=== PATIENT | male | born 1960 | race Caucasian/White ===

== ENCOUNTER 2017-10-01 11:53 | Inpatient (IN) | payer OTHER ==
[~2017-10-01] VITALS: Ht 180.3 cm; Wt 103.0 kg
[2017-10-01] MEDS ORDERED: SODIUM CHLORIDE 0.9% 1000ML 1,000 ML IV STA (12:19)
[2017-10-01 12:34] LABS: BASO % 0.5 %; BASO ABS # 0.03 K/uL (0-0.2); EOS % 3.5 %; HEMATOCRIT 44.4 % (42-52); HEMOGLOBIN 16.1 g/dL (14.0-18.0); IG# 0.01 K/uL (0.00-0.02); LYMPH % 30.9 %; LYMPH ABS # 1.75 K/uL (1.2-3.4); MEAN CELL VOLUME 79.4 fL (80-100); MEAN CORPUSCULAR HEMOGLOBIN 28.8 pg (25-34); MEAN CORPUSCULAR HGB CONC 36.3 g/dl (32-36); MEAN PLATELET VOLUME 9.6 fL (7.4-10.4); MONO % 4.2 %; MONO ABS # 0.24 K/uL (0.11-0.59); NEUT % 60.7 %; NEUT ABS # 3.44 K/uL (1.4-6.5); PLATELET COUNT 275 K/uL (130-400); RED CELL DISTRIBUTION WIDTH SD 37.2 fL (36.4-46.3); WHITE BLOOD COUNT 5.67 K/uL (4.8-10.8)
[2017-10-01] MEDS ORDERED: LORAZEPAM 2 MG/ML 1 ML VIAL IV STA (12:38)
[2017-10-01 12:47] LABS: ALBUMIN 3.9 gm/dl (3.4-5.0); ALKALINE PHOSPHATASE 85 U/L (45-117); ALT/SGPT 49 U/L (12-78); BLOOD UREA NITROGEN 16 mg/dl (7-18); CALCIUM 8.8 mg/dl (8.5-10.1); CARBON DIOXIDE 25 mmol/L (21-32); CREATININE 1.11 mg/dl (0.60-1.40); GLUCOSE 278 mg/dl (70-99); TOTAL PROTEIN 7.9 gm/dl (6.4-8.2)
[2017-10-01 12:54] LABS: POTASSIUM 4.1 mmol/L (3.5-5.1); SODIUM 135 mmol/L (136-145)
[2017-10-01 13:20] LABS: AST/SGOT 20 U/L (15-37)
--- NOTE | 2017-10-01 13:24 | DIAGNOSTIC IMAGING REPORT ---
CHEST AND ABDOMEN 2 VIEWS HISTORY: Generalized abdominal pain. Vomiting. COMPARISON: None. FINDINGS: The lungs are clear. The cardiomediastinal silhouette is within normal limits. There is no pneumoperitoneum or pneumatosis. The bowel gas pattern is unremarkable. No evidence for bowel obstruction. No renal or ureteral calculi. IMPRESSION: No acute cardiopulmonary process. No evidence for bowel obstruction. Electronically signed by: Primitivo Mae M.D. 10/01/2017 1:22 PM Dictated Date/Time: 10/01/2017 1:14 PM
[2017-10-01] MEDS ORDERED: LABETALOL HCL IV 5 MG/ML 20ML IV STA (13:34)
--- NOTE | 2017-10-01 13:40 | DIAGNOSTIC IMAGING REPORT ---
ABDOMINAL ULTRASOUND, RIGHT UPPER QUADRANT HISTORY: Generalized abdominal pain and vomiting after eating. COMPARISON: Chest and abdominal series 10/01/2017. FINDINGS: Pancreas: Obscured by overlying bowel gas. Liver: The liver is echogenic consistent with fatty change. Top normal in size measuring 18 cm in length. Gallbladder: No gallbladder wall thickening. No gallstones. CBD: 5 mm. Right kidney: No hydronephrosis. IMPRESSION: 1. Normal gallbladder. No gallstones. 2. Hepatic steatosis. 3. The pancreas was obscured by overlying bowel gas. Electronically signed by: Primitivo Mae M.D. 10/01/2017 1:39 PM Dictated Date/Time: 10/01/2017 1:38 PM
--- NOTE | 2017-10-01 13:52 | EMERGENCY ROOM VISIT NOTE ---
History Report prepared by Chadwick: Conor Bright Under the Supervision of: Dr. Elizabeth Hartley M.D. First contact with patient: 12:14 Chief Complaint: CARDIAC ASSESSMENT Stated Complaint: CARDIAC ASSESSMENT Nursing Triage Summary: Patient presents via ALS ambulance to room A03 He was evaluated at [facility] this morning and found to be hypertensive with a ? inferior infarct on EKG while in the office He never had any c/o chest pain however was given nitro SL x1 He had presented to [facility] for evaluation of abdominal pain, nausea, vomiting and diarrhea that he has had intermittently over the last several months States abdominal symptoms are currently resolved but most recent episode was appoximately 2 weeks ago History of Present Illness The patient is a 57 year old male who presents to the Emergency Room after referral from a primary physician at [facility] with concern over hypertension and new EKG findings. The patient notes that the physician he visited with stated that he needed to go to the emergency department to rule out a heart attack. The visit today was follow-up for some abdominal issues that he experienced 1.5 weeks ago. 1.5 weeks ago he had sharp pain to the periumbilical region of the abdomen as well as reflux, vomiting, and diarrhea. There was no blood in the emesis or stool. He does note that these episodes seem to be associated with eating high fat foods. Source of History: patient Onset: 1.5 weeks ago Position: abdomen Quality: sharp Timing: resolved Modifying Factors (Worsening): other (High fat foods) Associated Symptoms: + nausea, + vomiting, + diarrhea Review of Systems See HPI for pertinent positives & negatives. A total of 10 systems reviewed and were otherwise negative. Past Medical & Surgical Medical Problems: (1) No active medical problems Surgical Problems: (1) Hx of neck surgery No pertinent histories discussed. Family History None discussed. Social History Smoking Status: Never Smoker Marital Status: single Housing Status: lives with family Occupation Status: unemployed Current/Historical Medications Scheduled Aspirin (Aspirin EC Low Dose), 81 MG PO QAM Atorvastatin (Lipitor), 80 MG PO HS Clopidogrel Bisulfate (Clopidogrel), 75 MG PO QAM Lisinopril (Zestril), 10 MG PO QAM Metoprolol Tartrate (Lopressor), 25 MG PO BID Allergies Coded Allergies: No Known Allergies (Unverified , 10/01/17) Physical Exam Vital Signs Date Time Temp Pulse Resp B/P (MAP) Pulse Ox O2 Delivery O2 Flow Rate FiO2 10/01/17 13:38 93 20 186/106 96 Room Air 10/01/17 11:57 116 10/01/17 11:55 96 Room Air 10/01/17 11:55 37.3 110 24 166/113 96 Room Air 10/01/17 11:55 96 Room Air Physical Exam Vital signs reviewed. General: Well-appearing middle age male, in no significant distress. HEENT: No scleral icterus, PERRLA, neck supple. Atraumatic. Cardiovascular: Regular rate and rhythm, no extra sounds. Pulmonary: Clear to auscultation bilaterally, normal work of breathing. Abdomen: Soft, nontender, nondistended, positive bowel sounds. Musculoskeletal: Atraumatic, no peripheral edema. Neurologic: Patient awake alert and oriented x 3, full strength in all 4 extremities. Cranial nerves 2 through 12 grossly intact. Skin: Warm, dry, no rash Medical Decision & Procedures ER Provider Diagnostic Interpretation: Radiology results as stated below per my review and radiologist interpretation: CHEST AND ABDOMEN 2 VIEWS HISTORY: Generalized abdominal pain. Vomiting. COMPARISON: None. FINDINGS: The lungs are clear. The cardiomediastinal silhouette is within normal limits. There is no pneumoperitoneum or pneumatosis. The bowel gas pattern is unremarkable. No evidence for bowel obstruction. No renal or ureteral calculi. IMPRESSION: No acute cardiopulmonary process. No evidence for bowel obstruction. Electronically signed by: Primitivo Mae M.D. 10/01/2017 1:22 PM Dictated Date/Time: 10/01/2017 1:14 PM ABDOMINAL ULTRASOUND, RIGHT UPPER QUADRANT HISTORY: Generalized abdominal pain and vomiting after eating. COMPARISON: Chest and abdominal series 10/01/2017. FINDINGS: Pancreas: Obscured by overlying bowel gas. Liver: The liver is echogenic consistent with fatty change. Top normal in size measuring 18 cm in length. Gallbladder: No gallbladder wall thickening. No gallstones. CBD: 5 mm. Right kidney: No hydronephrosis. IMPRESSION: 1. Normal gallbladder. No gallstones. 2. Hepatic steatosis. 3. The pancreas was obscured by overlying bowel gas. Electronically signed by: Primitivo Mae M.D. 10/01/2017 1:39 PM Dictated Date/Time: 10/01/2017 1:38 PM Laboratory Results 10/01/17 12:00 Red Blood Count 5.59, Mean Corpuscular Volume 79.4, Mean Corpuscular Hemoglobin 28.8, Mean Corpuscular Hemoglobin Concent 36.3, Mean Platelet Volume 9.6, Neutrophils (%) (Auto) 60.7, Lymphocytes (%) (Auto) 30.9, Monocytes (%) (Auto) 4.2, Eosinophils (%) (Auto) 3.5, Basophils (%) (Auto) 0.5, Neutrophils # (Auto) 3.44, Lymphocytes # (Auto) 1.75, Monocytes # (Auto) 0.24, Eosinophils # (Auto) 0.20, Basophils # (Auto) 0.03 Test 10/01/17 12:00 White Blood Count 5.67 K/uL (4.8-10.8) Red Blood Count 5.59 M/uL (4.7-6.1) Hemoglobin 16.1 g/dL (14.0-18.0) Hematocrit 44.4 % (42-52) Mean Corpuscular Volume 79.4 fL (80-100) Mean Corpuscular Hemoglobin 28.8 pg (25-34) Mean Corpuscular Hemoglobin Concent 36.3 g/dl (32-36) Platelet Count 275 K/uL (130-400) Mean Platelet Volume 9.6 fL (7.4-10.4) Neutrophils (%) (Auto) 60.7 % Lymphocytes (%) (Auto) 30.9 % Monocytes (%) (Auto) 4.2 % Eosinophils (%) (Auto) 3.5 % Basophils (%) (Auto) 0.5 % Neutrophils # (Auto) 3.44 K/uL (1.4-6.5) Lymphocytes # (Auto) 1.75 K/uL (1.2-3.4) Monocytes # (Auto) 0.24 K/uL (0.11-0.59) Eosinophils # (Auto) 0.20 K/uL (0-0.5) Basophils # (Auto) 0.03 K/uL (0-0.2) RDW Standard Deviation 37.2 fL (36.4-46.3) RDW Coefficient of Variation 13.0 % (11.5-14.5) Immature Granulocyte % (Auto) 0.2 % Immature Granulocyte # (Auto) 0.01 K/uL (0.00-0.02) D-Dimer 290 ug/L FEU (0-500) Total Bilirubin 0.4 mg/dl (0.2-1) Direct Bilirubin < 0.1 mg/dl (0-0.2) Aspartate Amino Transf (AST/SGOT) 20 U/L (15-37) Alanine Aminotransferase (ALT/SGPT) 49 U/L (12-78) Alkaline Phosphatase 85 U/L (45-117) Total Protein 7.9 gm/dl (6.4-8.2) Albumin 3.9 gm/dl (3.4-5.0) Laboratory results per my review. Medications Administered Medications (Trade) Dose Ordered Sig/Liu Route Start Time Stop Time Status Last Admin Dose Admin Sodium Chloride 1,000 ml @ 200 mls/hr Q5H STAT IV 10/01/17 12:19 10/01/17 16:21 DC 10/01/17 12:27 200 MLS/HR Labetalol HCl (Normodyne IV) 10 mg NOW STAT IV 10/01/17 13:34 10/01/17 13:36 DC 10/01/17 13:40 10 MG ECG Per My Interpretation Indication: other (abnormal ekg earlier) Rate (beats per minute): 112 Rhythm: sinus tachycardia Findings: no acute ischemic change, no ectopy, other (QTC is 431) ED Course 1219: Past medical records reviewed. The patient was evaluated in room A3. A complete history and physical examination was performed. 1219: Ordered 1000 mL @ 200 mL/hr IV. 1238: Ordered Lorazepam 1 mg IV. 1334: Ordered Labetalol HCl 10 mg IV. 1351: I discussed the case with Dr. Mauro Smith [facility] Hospitalist. She will evaluate the patient for further treatment. Medical Decision Differential diagnosis: Etiologies such as appendicitis, diverticulitis, PUD, biliary pathology, UTI, pancreatitis, obstruction, mesenteric ischemia, aortic pathology, infections, inflammatory bowel disease, renal colic, as well as others were entertained. This pt was evaluated and appeared to be in no distress. IV access was obtained and lab work was drawn. Pt was placed on the site monitor. EKG reveals no evidence of STEMI. Lab work reveals a slight bump in trop, elevated glucose. Given post-prandial complaint, UA of GB was performed and is read as above. Abd XR series is negative for FA/SBO. Pt was hydrated with NSS, given IV labetolol for HTN. Pt will require inpt evaluation and management. He was made aware of the plan and agrees. Medication Reconcilliation Current Medication List: was personally reviewed by me Blood Pressure Screening Patient's blood pressure: Elevated blood pressure Referred to hospitalist. Consults Time Called: 1348 Consulting Physician: Dr. Mauro Velazquez Hospitalist Returned Call: 1351 I discussed the case with Dr. Mauro Velazquez Hospitalist. She will evaluate the patient for further treatment. Impression Primary Impression: Hypertensive urgency Additional Impression: Elevated troponin Scribe Attestation The scribe's documentation has been prepared under my direction and personally reviewed by me in its entirety. I confirm that the note above accurately reflects all work, treatment, procedures, and medical decision making performed by me. Departure Information Dispostion Being Evaluated By Hospitalist Prescriptions Aspirin (Aspirin EC Low Dose) 81 Mg Ectab 81 MG PO QAM, #30 TABS Prov: Lan, Elba ., D.O. 10/03/17 Metoprolol Tartrate (LOPRESSOR) 25 Mg Tab 25 MG PO BID, #60 TAB Prov: Lan, Elba ., D.O. 10/03/17 Lisinopril (Zestril) 10 Mg Tab 10 MG PO QAM, #30 TAB Prov: Lan, Elba ., D.O. 10/03/17 Atorvastatin (LIPITOR) 40 Mg Tab 80 MG PO HS, #30 TAB Prov: Lan, Elba ., D.O. 10/03/17 Clopidogrel Bisulfate (Clopidogrel) 75 Mg Tab 75 MG PO QAM, #30 TAB Prov: Lan, Elba ., D.O. 10/03/17 Patient Instructions My [facility] Problem Qualifiers
[2017-10-01 14:10] VITALS: O2SAT 96; BMI 32.9
[2017-10-01] MEDS ORDERED: GLUCOSE 10 TABS/TUBE PO PRN (15:15)
[2017-10-01] MEDS ORDERED: ONDANSETRON INJ 2 MG/ML 2 ML VIAL IV PRN (15:15)
[2017-10-01] MEDS ORDERED: DEXTROSE 50% 50 ML SYR IV PRN (15:15)
[2017-10-01] MEDS ORDERED: MAGNESIUM HYDROXIDE SUSP 30 ML UDC PO PRN (15:15)
[2017-10-01] MEDS ORDERED: POLYETHYLENE (MIRALAX) 17 GM PACK PO PRN (15:15)
[2017-10-01] MEDS ORDERED: LORAZEPAM 0.5 MG TAB PO PRN ×2 (15:15→21:00)
[2017-10-01] MEDS ORDERED: ALUMINUM/MAGNESIUM/SIMETH (MAALOX MAX) 30 ML UDC PO PRN (15:15)
[2017-10-01] MEDS ORDERED: GLUCAGON FOR INJ 1 MG VIAL SQ PRN (15:15)
[2017-10-01] MEDS ORDERED: NITROGLYCERIN 0.4 MG SL PER TAB CHARGE SL PRN (15:15)
[2017-10-01] MEDS ORDERED: GLUCOSE 40% GEL 15 GM TUBE PO PRN (15:15)
[2017-10-01] MEDS ORDERED: ACETAMINOPHEN 325 MG TAB PO PRN (15:15)
[2017-10-01] MEDS ORDERED: PHARMACY GLYCEMIC MGMT CONSULT PRN (15:22)
--- NOTE | 2017-10-01 15:37 | History and Physical ---
History & Physical Date & Time of Service: Oct 01, 2017 at 14:59 Chief Complaint: Cardiac Assessment Primary Care Physician: Emani,Dontae Vol.in Medicine History of Present Illness Source: patient, family, hospital records Pt is 57 y/o M presented to ER for HTN. Pt has not seen physician for years and therefore unsure of any underlying medical problems. He does report that he has checked his BP at pharmacy a couple of times in past and was 140's/90's. Today pt was seen at [facility] for initial evaluation and for hx of N/V/D. He was sent to ER for HTN and possible EKG changes. Pt denies any current CP or SOB. He states 2 weeks ago he ate a Whopper burger and after started with mid abdominal pain, nausea, vomiting and diarrhea which resolved after 2 days. He reports a similar occurrence 2 years ago after eating all you can eat appetizers and at that time symptoms lasted 4 days. Hx heartburn 5-7 times a week for past 4 years. 2 weeks ago took TUMS with moderate relief, otherwise no other medical treatment or evaluation. 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 Reports FRAKN that occurs once a month described as sharp sudden "explosion type" pain that lasts for approx 5 minutes and self resolves. It is not associated with vision changes, dizziness, paresthesias, lacrimation, N/V. Pt states increased nocturnal urination x 1 year. He reports approx 20 pound weight loss over past 6 months. He states has stopped drinking soda and has focused on controlled portions. Uses Ibuprofen 2 tabs once a day approx once a month. Drinks 1 cup coffee daily, 32 oz iced tea twice weekly. Denies fever/chills, diaphoresis, hematemesis, melena, hematochezia, dysuria, hematuria, urinary retention, dizziness, syncope, vision changes, neck pain, CP, SOB, orthopnea, PND, palpitations, cough, sore throat, choking, otalgia, rhinorrhea, paresthesias, weakness, extremity weakness, extremity edema, rashes. FH NV - age 75. FH HTN, HLD, DM Past Medical/Surgical History Medical Problems: (1) No active medical problems Status: Chronic Surgical Problems: (1) Hx of neck surgery Permanent Comment: 2003 - pt reports exploratory surgery for c-spine and reports normal results Status: Resolved Family History Diabetes mellitus FH: NV (myocardial infarction) FH: esophageal cancer FH: hyperlipidemia FH: kidney cancer FH: ovarian cancer Hypertension Social History Smoking Status: Never Smoker Smokeless Tobacco Use: No Alcohol Use: none Drug Use: none Housing status: lives with family Allergies Coded Allergies: No Known Allergies (Unverified , 10/01/17) Home Medications Scheduled Aspirin (Aspirin EC Low Dose), 81 MG PO QAM Atorvastatin (Lipitor), 80 MG PO HS Clopidogrel Bisulfate (Clopidogrel), 75 MG PO QAM Lisinopril (Zestril), 10 MG PO QAM Metoprolol Tartrate (Lopressor), 25 MG PO BID Review of Systems See HPI for pertinent positives & negatives. All other systems reviewed and were otherwise negative Physical Exam Vital Signs Date Time Temp Pulse Resp B/P (MAP) Pulse Ox O2 Delivery O2 Flow Rate FiO2 10/01/17 14:10 96 Room Air 10/01/17 13:38 93 20 186/106 96 Room Air 10/01/17 11:57 116 10/01/17 11:55 96 Room Air 10/01/17 11:55 37.3 110 24 166/113 96 Room Air 10/01/17 11:55 96 Room Air General Appearance: WD/WN, no apparent distress Head: normocephalic, atraumatic Eyes: normal inspection, PERRL, EOMI, sclerae normal ENT: hearing grossly normal, pharynx normal, + pertinent finding Neck: supple, no JVD, trachea midline Respiratory/Chest: lungs clear, normal breath sounds, no respiratory distress Cardiovascular: regular rate, rhythm, normal peripheral pulses Abdomen/GI: normal bowel sounds, non tender, soft Extremities/Musculoskelatal: no calf tenderness, normal capillary refill, no pedal edema, non-tender Neurologic/Psych: alert, normal mood/affect, oriented x 3 Skin: normal color, warm/dry Diagnostics Laboratory Results Results Past 24 Hours Test 10/01/17 12:00 10/01/17 14:18 Range/Units White Blood Count 5.67 4.8-10.8 K/uL Red Blood Count 5.59 4.7-6.1 M/uL Hemoglobin 16.1 14.0-18.0 g/dL Hematocrit 44.4 42-52 % Mean Corpuscular Volume 79.4 80-100 fL Mean Corpuscular Hemoglobin 28.8 25-34 pg Mean Corpuscular Hemoglobin Concent 36.3 32-36 g/dl Platelet Count 275 130-400 K/uL Mean Platelet Volume 9.6 7.4-10.4 fL Neutrophils (%) (Auto) 60.7 % Lymphocytes (%) (Auto) 30.9 % Monocytes (%) (Auto) 4.2 % Eosinophils (%) (Auto) 3.5 % Basophils (%) (Auto) 0.5 % Neutrophils # (Auto) 3.44 1.4-6.5 K/uL Lymphocytes # (Auto) 1.75 1.2-3.4 K/uL Monocytes # (Auto) 0.24 0.11-0.59 K/uL Eosinophils # (Auto) 0.20 0-0.5 K/uL Basophils # (Auto) 0.03 0-0.2 K/uL RDW Standard Deviation 37.2 36.4-46.3 fL RDW Coefficient of Variation 13.0 11.5-14.5 % Immature Granulocyte % (Auto) 0.2 % Immature Granulocyte # (Auto) 0.01 0.00-0.02 K/uL D-Dimer 290 0-500 ug/L FEU Sodium Level 135 136-145 mmol/L Potassium Level 4.1 3.5-5.1 mmol/L Chloride Level 103 98-107 mmol/L Carbon Dioxide Level 25 21-32 mmol/L Anion Gap 6.0 3-11 mmol/L Blood Urea Nitrogen 16 7-18 mg/dl Creatinine 1.11 0.60-1.40 mg/dl Est Creatinine Clear Calc Drug Dose 93.2 ml/min Estimated GFR () 86.2 Estimated GFR (Non- 74.4 BUN/Creatinine Ratio 14.4 10-20 Random Glucose 278 70-99 mg/dl Calcium Level 8.8 8.5-10.1 mg/dl Total Bilirubin 0.4 0.2-1 mg/dl Direct Bilirubin < 0.1 0-0.2 mg/dl Aspartate Amino Transf (AST/SGOT) 20 15-37 U/L Alanine Aminotransferase (ALT/SGPT) 49 12-78 U/L Alkaline Phosphatase 85 45-117 U/L Troponin I 0.076 0-0.045 ng/ml Total Protein 7.9 6.4-8.2 gm/dl Albumin 3.9 3.4-5.0 gm/dl Diagnostic Radiology CXR ABD XRAY: IMPRESSION: No acute cardiopulmonary process. No evidence for bowel obstruction. US GALLBLADDER: IMPRESSION: 1. Normal gallbladder. No gallstones. 2. Hepatic steatosis. 3. The pancreas was obscured by overlying bowel gas. EKG EKG: Sinus tachycardia, rate 112, no acute ST elevations noted Read by ed teacher: Sinus tachycardia Otherwise normal ECG No previous ECGs available Confirmed by LAURA LUKE ([id number]) on 10/01/2017 1:07:29 PM Impression Assessment and Plan Pt is 57 y/o M with unknown medical hx presented to ER with HTN and possible EKG changes from [facility]. Pt has not seen Dr in years and today first visit at [facility]. Pt denies any complaints currently. HTN URGENCY BP elevated at 166/113 initial in ER. 186/106 left arm, 180/117 right arm while in ER. No CP, SOB, dizziness, FRANK. Troponin: 0.[address] changes noted on EKG. Pt given labetalol 10mg IV in ER with continued HTN -labetolol IV prn HTN -Start lisinopril 5mg po daily -monitor ELEVATED TROPONIN R/O ACS Troponin: 0.[address] changes noted on EKG. No CP, SOB, dizziness, FRANK. Risk factors:HTN, probable underlying DM, obesity, FH CAD -Monitor Vitals -Repeat EKG in am -Will trend troponin -Echo -lipid panel -tox screen added -TSH added -ASA -Nitro prn CP and repeat EKG for CP HYPERGLYCEMIA Glucose: 278. Probable undiagnosed DM II. -HA1c added -NovoLog and Lantus per protocol HX INDIGESTION, N/V/D, ABDOMINAL PAIN reports indigestion symptoms 5-7 days a week for 4 years. Hx N/V/D and mid abdominal pain after eating fatty/greasy foods, last occurrence 2 weeks ago. In ER had gallbladder U/S: Normal gallbladder. No gallstones. Hepatic steatosis. The pancreas was obscured by overlying bowel gas. -Maalox prn indigestion -pt may need PPI start and/or out-patient GI consult DVT Prophylaxis -Heparin SQ Disposition admit tele Full Code Does not follow with for routine care Pt was seen with Dr Wade. See addendum patient seen and examined Care coordinated with Saqib HUMPHREYS In agreement with above H&P This is a 57-year-old male has not followed up with physician in the past Does not have medical insurance Was seen at [facility] for the first time visit With complaint abdominal discomfort episodes of nausea vomiting Patient was found to be markedly hypertensive EKG showed Q waves in the inferior and lateral leads Patient was sent to Medical Center via ambulance for chest pain Mentions for the past few weeks noticed to have significant dyspnea on exertion , poor exercise tolerance Lost approximately 30 pounds in the past 6 months Physical exam Is referred to the physical exam done by Tyra Cerrato PA-C Assessment and plan: Hypertensive urgency Patient was started with IV labetalol Continue antihypertensive meds past Low-dose lisinopril will be started Echo to assess hypertensive cardiomyopathy elevated troponin : with EKG changes , no prior EKG to compare serial cardiac markers ECHO cardiology consulted Hyperglycemia : family hx of DM pt reports of increased fatigue , polyuria ordered for Hb A1c insulin SSI , basal Lantus Pharmacy consulted for glycemic management Full code The documentation by Tyra Cerrato PA-C for further discussion of other medical issues Janessa Wade MD Advanced Directives Existing Living Will: No Existing Power of Foundry Patternmaker: No Resuscitation Status VTE Prophylaxis Will order VTE Prophylaxis: Yes
[2017-10-01 15:45] VITALS: BP 165/110; PULSE 98; TEMP 36.8; O2SAT 93
[2017-10-01] MEDS ORDERED: LISINOPRIL 5 MG TAB PO ONE ×2 (15:45→16:08)
[2017-10-01] MEDS ORDERED: METOPROLOL TARTRATE 25 MG TAB PO ONE (16:08)
[2017-10-01] MEDS: INSULIN ASPART 100 UNITS/ML 3 ML PEN SC SCH ×2 (16:43→21:03)
--- NOTE | 2017-10-01 16:51 | Cardiology Consultation ---
Cardiology Consultation Date of Consultation: Oct 01, 2017 Requesting Physician: Dr. Janessa Wade, reason for consultation: Elevated troponin, abnormal ECG Attending Ase Master Mechanic: Dr. Asher Ron History of Present Illness Patient is a 57 year old male presented to the emergency department via EMS from [facility]. Patient was referred to the emergency department due to elevated blood pressure and abnormal baseline ECG suggesting age-indeterminate inferior infarct. In the ER patient was treated with intravenous labetalol. He denies any chest pain or shortness of breath currently. Repeat ECG performed upon arrival demonstrate small inferior Q waves, no significant ST-T wave changes. Initial troponin is mildly elevated at 0.076. Patient reports epigastric discomfort, dyspepsia, and diarrhea which occurred approximately 10 days ago. Since then he has noted some intermittent heartburn primarily associated with eating. 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 Notes some mild dyspnea on exertion. Denies exertional chest discomfort , heaviness, or tightness. He was treated with sublingual nitroglycerin earlier , however, this had no effect symptomatically. Initial blood testing reveals diabetes with a random glucose of 278. Patient has not taken any medications as an adult. He does not typically follow with physicians. Denies any known medical problems prior to today's clinic visit. Offers no complaints at this time. Past Medical/Surgical History Problem List: Medical Problems: (1) No active medical problems Surgical Problems: (1) Hx of neck surgery Family History Diabetes mellitus FH: [place] (myocardial infarction) FH: esophageal cancer FH: hyperlipidemia FH: kidney cancer FH: ovarian cancer Hypertension Denies family history of premature coronary artery disease or sudden cardiac . Social History Smoking Status: Never Smoker Smokeless Tobacco Use: No Alcohol Use: none Drug Use: none Housing Status: lives with family Review Of Systems General: The patient denies weight change, night sweats, fever, chills. Head: + Headache. The patient denies prior head trauma. Cardiovascular: + Mild dyspnea on exertion. The patient denies chest pain or chest discomfort, palpitations, PND, orthopnea, edema, spontaneous shortness of breath, syncope and near syncope. Pulmonary: The patient denies cough, wheeze, pleurisy, hemoptysis, sputum, and excessive snoring. Gastrointestinal: + Dyspepsia, heartburn, diarrhea. The patient denies nausea, vomiting, constipation, bloating, hematemesis, hematochezia, and abdominal pain. Skin: The patient denies diaphoresis and rash. Musculoskeletal: The patient denies joint pain, joint swelling, myalgia, back pain, neck pain and prior injuries. Neurological: The patient denies prior stroke and seizures Allergies Coded Allergies: No Known Allergies (Unverified , 10/01/17) Medications Reported Home Medications Medications Dose Route/Sig Max Daily Dose Days Date Category No Active Prescriptions or Reported Medications Rx Physical Exam Vital Signs (Last 8hrs): Last 8 Hrs Date Time Temp Pulse Resp B/P (MAP) Pulse Ox O2 Delivery O2 Flow Rate FiO2 10/01/17 15:45 93 Room Air 10/01/17 15:45 36.8 98 18 165/110 (128) 93 Room Air 10/01/17 15:45 93 Room Air 10/01/17 15:30 94 20 144/98 94 Room Air 10/01/17 14:59 90 20 180/117 95 10/01/17 14:10 96 Room Air 10/01/17 13:38 93 20 186/106 96 Room Air 10/01/17 11:57 116 10/01/17 11:55 96 Room Air 10/01/17 11:55 37.3 110 24 166/113 96 Room Air 10/01/17 11:55 96 Room Air General Appearance: Alert and Oriented x3. NAD. Overweight. Head: Normocephalic Atraumatic. Eyes: PERRLA, EOMI, conjunctiva and sclera clear Neck: Supple. No carotid bruits noted. No JVD. No HJD. Respiratory: Breath sounds clear to auscultation bilaterally. No w/r/r. Cardiovascular: Reg rate and rhythm. S1 and S2 noted. No murmurs, rubs, gallops. PMI non displace. Abdomen: Normal bowel sounds, soft nontender. no abdominal bruits. Extremities: No edema, no clubbing or cyanosis. distal pulses 2/4 bilaterally. Neuro: No focal deficits. Psychiatric: Normal affect. Data Last 24 Hours Test 10/01/17 12:00 10/01/17 14:18 10/01/17 16:10 10/01/17 16:14 White Blood Count 5.67 K/uL Red Blood Count 5.59 M/uL Hemoglobin 16.1 g/dL Hematocrit 44.4 % Mean Corpuscular Volume 79.4 fL Mean Corpuscular Hemoglobin 28.8 pg Mean Corpuscular Hemoglobin Concent 36.3 g/dl Platelet Count 275 K/uL Mean Platelet Volume 9.6 fL Neutrophils (%) (Auto) 60.7 % Lymphocytes (%) (Auto) 30.9 % Monocytes (%) (Auto) 4.2 % Eosinophils (%) (Auto) 3.5 % Basophils (%) (Auto) 0.5 % Neutrophils # (Auto) 3.44 K/uL Lymphocytes # (Auto) 1.75 K/uL Monocytes # (Auto) 0.24 K/uL Eosinophils # (Auto) 0.20 K/uL Basophils # (Auto) 0.03 K/uL RDW Standard Deviation 37.2 fL RDW Coefficient of Variation 13.0 % Immature Granulocyte % (Auto) 0.2 % Immature Granulocyte # (Auto) 0.01 K/uL D-Dimer 290 ug/L FEU Sodium Level 135 mmol/L Potassium Level 4.1 mmol/L Chloride Level 103 mmol/L Carbon Dioxide Level 25 mmol/L Anion Gap 6.0 mmol/L Blood Urea Nitrogen 16 mg/dl Creatinine 1.11 mg/dl Est Creatinine Clear Calc Drug Dose 93.2 ml/min Estimated GFR () 86.2 Estimated GFR (Non- 74.4 BUN/Creatinine Ratio 14.4 Random Glucose 278 mg/dl Calcium Level 8.8 mg/dl Total Bilirubin 0.4 mg/dl Direct Bilirubin < 0.1 mg/dl Aspartate Amino Transf (AST/SGOT) 20 U/L Alanine Aminotransferase (ALT/SGPT) 49 U/L Alkaline Phosphatase 85 U/L Troponin I 0.076 ng/ml Total Protein 7.9 gm/dl Albumin 3.9 gm/dl Hepatitis C Antibody Screen NEG Bedside Glucose 200 mg/dl Prothrombin Time 10.6 SECONDS Prothromb Time International Ratio 1.0 Imaging: Chest x-ray: No CHF. EKG: Sinus rhythm, small inferior Q waves. Telemetry reviewed: Sinus rhythm 2D echocardiogram: Preserved LV systolic function, ejection fraction 55-60%. Small inferior posterior wall motion abnormality with hypokinesis of the segments. No significant valvular disease. No pericardial effusion. Assessment & Plan Final impression: 1. 57-year-old male patient presents for evaluation of elevated blood pressure and abnormal resting ECG. Initial troponin mildly elevated at 0.076. Blood pressure remains elevated. Baseline lab testing also suggests underlying diabetes mellitus was previously undiagnosed. Resting 2D transthoracic echo with a small wall motion abnormality suggesting underlying ischemic heart disease. Patient without signs/symptoms of angina currently, however, reports atypical symptoms over the past few weeks including dyspepsia and mild dyspnea on exertion. 2. HTN -newly diagnosed / uncontrolled 3. DM-2 4. Overweight Plan/Recommendations: I had a long discussion with the patient regarding new diagnoses listed above as well as abnormal baseline lab studies and echocardiogram. Troponins will be trended 3 sets. Recommend medical therapy including: Metoprolol 25 mg twice daily, lisinopril 5 mg daily, aspirin 81 mg daily, and atorvastatin 40 mg daily. Repeat fasting lipid panel ordered for the a.m. Continue telemetry monitoring during hospitalization. Further ischemic evaluation with stress testing versus coronary angiography is warranted pending clinical course and review of repeat lab testing. All questions answered to the satisfaction of both the patient and his daughter. I will continue to follow closely during hospitalization.
--- NOTE | 2017-10-01 16:57 | ECHOCARDIOGRAM REPORT ---
*NOTICE TO RECEIVING CONSTITUTION PARTY AGENCY This information is strictly Confidential and protected under [place] law. [place] law prohibits you from making any further disclosure of this information unless further disclosure is expressly permitted by the written consent of the person to whom it pertains or is authorized by law. A general authorization for the release of medical or other information is not sufficient for this purpose. Hospital accepts no responsibility if the information is made available to any other person, INCLUDING THE PATIENT. Interpretation Summary * Name: ADELA EVANS Study Date: 10/01/2017 02:55 PM BP: 144/98 mmHg * Patient Location: [facility] [place] HR: 91 * : 1960 (M/d/yyyy) Gender: Male Height: 71 in * Age: 57 yrs Ethnicity: CA Weight: 236 lb * Ordering Physician: Janessa Wade * Referring Physician: Self, Referred * Performed By: Shanna Moran RCS * * Reason For Study: HTN URGENCY * BSA: 2.3 m2 * The study was technically adequate. * There is no comparison study available. * -- Conclusions -- * Ejection Fraction = 55-60%. * Mild hypokinesis of the basal and mid inferior wall and basal posterior wall. * Otherwise, normal wall motion. * There is mild concentric left ventricular hypertrophy. * Grade I diastolic dysfunction, (abnormal relaxation pattern). * No significant valvular pathology. Procedure Details * A complete two-dimensional transthoracic echocardiogram was performed (2D, M-mode, Doppler and color flow Doppler). Left Ventricle * The left ventricle is normal in size. * There is no thrombus. * There is mild concentric left ventricular hypertrophy. * Left ventricular systolic function is normal. * Ejection Fraction = 55-60%. * Mild hypokinesis of the basal and mid inferior wall and basal posterior wall. Otherwise, normal wall motion. Right Ventricle * The right ventricle is normal size. * The right ventricular systolic function is normal as assessed by tricuspid annular plane systolic excursion (TAPSE) (normal >1.5 cm). Atria * The left atrial size is normal. * Right atrial size is normal. * There is no evidence of atrial septal defect, but resolution does not allow assessment for a patent foramen ovale. Mitral Valve * The mitral valve is normal. * There is no mitral valve stenosis. * Significant mitral regurgitation is absent. Tricuspid Valve * The tricuspid valve is normal. * There is no tricuspid stenosis. * Significant tricuspid regurgitation is absent. Aortic Valve * The aortic valve is trileaflet. * Aortic stenosis is absent. * There is no significant aortic regurgitation. Pulmonic Valve * The pulmonary valve is not well seen, but the Doppler examination is normal without significant regurgitation or stenosis. Great Vessels * The aortic root and proximal ascending aorta are normal sized. Pericardium/Pleural * There is no pericardial effusion. Great Vessels * Normal inferior vena cava diameter and respiratory variation suggests normal central venous pressure. Left Ventricular Diastolic Function * Grade I diastolic dysfunction, (abnormal relaxation pattern). MMode 2D Measurements and Calculations IVSd 1.5 cm IVSs 1.9 cm LVIDd 3.5 cm LVIDs 2.4 cm LVPWd 1.2 cm LVPWs 1.4 cm IVS/LVPW 1.2 FS 30.5 % EDV(Teich) 49.8 ml ESV(Teich) 20.4 ml EF(Teich) 59.1 % EDV(cubed) 41.8 ml ESV(cubed) 14.0 ml EF(cubed) 66.5 % % IVS thick 22.3 % % LVPW thick 11.2 % LV mass(C)d 170.0 grams LV mass(C)dI 75.1 grams/m\S\2 LV mass(C)s 141.9 grams LV mass(C)sI 62.7 grams/m\S\2 SV(Teich) 29.4 ml SI(Teich) 13.0 ml/m\S\2 SV(cubed) 27.8 ml SI(cubed) 12.3 ml/m\S\2 Ao root diam 2.8 cm Ao root area 6.2 cm\S\2 ACS 1.9 cm LA dimension 3.9 cm LA/Ao 1.4 LVOT diam 1.8 cm LVOT area 2.6 cm\S\2 LVAd ap4 39.1 cm\S\2 LVLd ap4 9.0 cm EDV(MOD-sp4) 134.1 ml EDV(sp4-el) 144.9 ml LVAs ap4 26.1 cm\S\2 LVLs ap4 7.8 cm ESV(MOD-sp4) 72.5 ml ESV(sp4-el) 73.7 ml EF(MOD-sp4) 45.9 % EF(sp4-el) 49.1 % LVAd ap2 41.4 cm\S\2 LVLd ap2 9.4 cm EDV(MOD-sp2) 143.8 ml EDV(sp2-el) 155.3 ml LVAs ap2 25.4 cm\S\2 LVLs ap2 8.0 cm ESV(MOD-sp2) 66.6 ml ESV(sp2-el) 68.5 ml EF(MOD-sp2) 53.7 % EF(sp2-el) 55.9 % LVLd %diff 4.3 % EDV(MOD-bp) 143.4 ml LVLs %diff 2.3 % ESV(MOD-bp) 70.7 ml EF(MOD-bp) 50.7 % SV(MOD-sp4) 61.6 ml SI(MOD-sp4) 27.2 ml/m\S\2 SV(MOD-sp2) 77.2 ml SI(MOD-sp2) 34.1 ml/m\S\2 SV(MOD-bp) 72.7 ml SI(MOD-bp) 32.1 ml/m\S\2 SV(sp4-el) 71.2 ml SI(sp4-el) 31.5 ml/m\S\2 SV(sp2-el) 86.8 ml SI(sp2-el) 38.4 ml/m\S\2 Doppler Measurements and Calculations MV E max barrett 49.6 cm/sec MV A max barrett 78.2 cm/sec MV E/A 0.63 MV P1/2t max barrett 62.1 cm/sec MV P1/2t 61.4 msec MVA(P1/2t) 3.6 cm\S\2 MV dec slope 296.5 cm/sec\S\2 MV dec time 0.17 sec Ao V2 max 120.8 cm/sec Ao max PG 5.8 mmHg Ao max PG (full) 2.2 mmHg ZARINA(V,A) 2.1 cm\S\2 ZARINA(V,D) 2.1 cm\S\2 LV V1 max PG 3.6 mmHg LV V1 max 94.9 cm/sec PA V2 max 92.3 cm/sec PA max PG 3.4 mmHg
[2017-10-01 20:46] VITALS: BP 155/100; PULSE 87; TEMP 36.7; O2SAT 95
[2017-10-01] MEDS ORDERED: INSULIN GLARGINE SOLOSTAR 100 UNITS/ML 3 ML PEN SC ONE (21:00)
[2017-10-01] MEDS: METOPROLOL TARTRATE 25 MG TAB PO SCH (21:02)
[2017-10-01] MEDS: ATORVASTATIN 40 MG TAB PO SCH (21:02)
[2017-10-01] MEDS: HEPARIN SOD 5000 UNIT/0.5 ML CARP SQ SCH (21:04)
[2017-10-01 23:35] VITALS: BP 138/85; PULSE 82; TEMP 37.1; O2SAT 96
[2017-10-02] VITALS (16 sets, daily range): BP systolic 137–168; BP diastolic 88–127; PULSE 73–98; TEMP 36.4–37; O2SAT 93–100; Ht 180.3 cm; Wt 103.0 kg
[2017-10-02] MEDS: INSULIN ASPART 100 UNITS/ML 3 ML PEN SC SCH ×4 (07:57→20:42)
[2017-10-02] MEDS: HEPARIN SOD 5000 UNIT/0.5 ML CARP SQ SCH ×2 (07:57→20:42)
[2017-10-02] MEDS: METOPROLOL TARTRATE 25 MG TAB PO SCH ×2 (07:58→20:35)
[2017-10-02 08:00] LABS: CALCIUM 8.8 mg/dl (8.5-10.1); CREATININE 1.07 mg/dl (0.60-1.40)
[2017-10-02 08:18] LABS: HEMOGLOBIN A1C 12.7 % (4.5-5.6)
[2017-10-02] MEDS ORDERED: LISINOPRIL 5 MG TAB PO ONE (08:30)
[2017-10-02] MEDS ORDERED: LISINOPRIL 5 MG TAB PO SCH ×2 (09:00)
[2017-10-02] MEDS: ASPIRIN 81 MG ECTAB PO SCH (09:31)
--- NOTE | 2017-10-02 10:02 | Cardiology Follow-Up ---
Subjective General Date of Service: Oct 02, 2017. Pt evaluation today including: conversation w/ patient, conversation w/ family , physical exam, chart review, lab review, review of studies, review of inpatient medication list History of Present Illness The patient is a 57 year old male seen in follow-up. Denies chest pain or shortness of breath overnight. Heart rate and blood pressure improved. Mild troponin elevation is flat. No dysrhythmias on telemetry. Allergies Coded Allergies: No Known Allergies (Unverified , 10/01/17) Social History Smoking Status: Never Smoker Hx Alcohol Use - Type And Amou: No Hx Substance Use - Type And Am: No Problem List Medical Problems: (1) Elevated troponin Status: Acute Review of Systems Respiratory: No cough, No sputum, No wheezing, No shortness of breath, No dyspnea on exertion, No dyspnea at rest, No hemoptysis Cardiac: No chest pain, No orthopnea, No PND, No edema, No palpitations Physical Exam Vital Signs Last Vital Signs Documentation Date Time Temp Pulse Resp B/P (MAP) Pulse Ox O2 Delivery O2 Flow Rate FiO2 10/02/17 08:00 Room Air 10/02/17 07:14 36.5 81 20 164/103 (123) 95 166/107 (126) Physical Exam Constitutional: General Apperance: overweight Level of Distress: NAD Ambulation: ambulating normally Head: normocephalic, atraumatic Lungs: Respiratory effort: no dyspnea Auscultation: breath sounds normal, no wheezing, no rales/crackles, no rhonchi Cardiovascular: Heart Auscultation: RRR, normal S1, normal S2, no murmurs, no rubs, no gallops Peripheral Pulses: Radial Pulse: normal on the right Femoral Pulse: normal on the right Musculoskeletal: normal strength (5/5 throughout) Extremities: no cyanosis, no edema, no clubbing, no ulcers Neurologic: Gait & Station: pertinent finding (No focal motor deficit) Cranial Nerves: grossly intact Assessment and Plan Assessment and Plan Final impression: 1. 57-year-old male patient presents for evaluation of elevated blood pressure and abnormal resting ECG. Mildly elevated troponins are flat with echocardiographic evidence of posterior inferior infarction and preserved LV systolic function. Myocardial infarction appears to be "silent" in the setting of uncontrolled diabetes. Atypical symptoms of dyspnea on exertion and dyspepsia noted. 2. HTN -newly diagnosed / uncontrolled 3. DM-2 4. Dyslipidemia Plan/Recommendations: I had a long discussion with the patient regarding results of testing suggesting underlying ischemic heart disease with recent inferior posterior infarction. Atypical symptoms noted as above, however, no classic anginal symptoms to correlate with any recent infarction. Use of patient's symptoms to model making supervisor anginal risk somewhat difficult given evidence of uncontrolled diabetes and possible neuropathy. He is high risk for underlying ischemic heart disease based on these results and risk factors. Discussed invasive versus noninvasive approach to treatment at this time. The risk of catheterization were reviewed in detail including bleeding, stroke risk, myocardial infarction, , dysrhythmia, or hemorrhage. After long discussion with the patient he is agreeable to left heart catheterization with coronary angiography. Further recommendations pending results of that study. Laboratory Results Last 24 Hours Test 10/01/17 12:00 10/01/17 14:18 10/01/17 16:10 10/01/17 16:14 White Blood Count 5.67 K/uL Red Blood Count 5.59 M/uL Hemoglobin 16.1 g/dL Hematocrit 44.4 % Mean Corpuscular Volume 79.4 fL Mean Corpuscular Hemoglobin 28.8 pg Mean Corpuscular Hemoglobin Concent 36.3 g/dl Platelet Count 275 K/uL Mean Platelet Volume 9.6 fL Neutrophils (%) (Auto) 60.7 % Lymphocytes (%) (Auto) 30.9 % Monocytes (%) (Auto) 4.2 % Eosinophils (%) (Auto) 3.5 % Basophils (%) (Auto) 0.5 % Neutrophils # (Auto) 3.44 K/uL Lymphocytes # (Auto) 1.75 K/uL Monocytes # (Auto) 0.24 K/uL Eosinophils # (Auto) 0.20 K/uL Basophils # (Auto) 0.03 K/uL RDW Standard Deviation 37.2 fL RDW Coefficient of Variation 13.0 % Immature Granulocyte % (Auto) 0.2 % Immature Granulocyte # (Auto) 0.01 K/uL D-Dimer 290 ug/L FEU Sodium Level 135 mmol/L Potassium Level 4.1 mmol/L Chloride Level 103 mmol/L Carbon Dioxide Level 25 mmol/L Anion Gap 6.0 mmol/L Blood Urea Nitrogen 16 mg/dl Creatinine 1.11 mg/dl Est Creatinine Clear Calc Drug Dose 93.2 ml/min Estimated GFR () 86.2 Estimated GFR (Non- 74.4 BUN/Creatinine Ratio 14.4 Random Glucose 278 mg/dl Calcium Level 8.8 mg/dl Total Bilirubin 0.4 mg/dl Direct Bilirubin < 0.1 mg/dl Aspartate Amino Transf (AST/SGOT) 20 U/L Alanine Aminotransferase (ALT/SGPT) 49 U/L Alkaline Phosphatase 85 U/L Troponin I 0.076 ng/ml 0.073 ng/ml Total Protein 7.9 gm/dl Albumin 3.9 gm/dl Hepatitis C Antibody Screen NEG Bedside Glucose 200 mg/dl Prothrombin Time 10.6 SECONDS Prothromb Time International Ratio 1.0 Total Creatine Kinase 80 U/L LDL Cholesterol Direct 139 mg/dl Thyroid Stimulating Hormone (TSH) 1.550 uIu/ml Test 10/01/17 20:40 10/01/17 20:45 10/02/17 00:10 10/02/17 02:10 Troponin I 0.073 ng/ml 0.069 ng/ml Bedside Glucose 192 mg/dl Urine Opiates Screen NEG Urine Methadone, Qualitative NEG Urine Barbiturates NEG Urine Phencyclidine (PCP) Level NEG Ur Amphetamine/Methamphetamine NEG MDMA (Ecstasy) Screen NEG Urine Benzodiazepines Screen NEG Urine Cocaine Metabolite NEG Urine Marijuana (THC) NEG Test 10/02/17 06:37 10/02/17 07:00 Bedside Glucose 194 mg/dl Sodium Level 136 mmol/L Potassium Level 4.0 mmol/L Chloride Level 103 mmol/L Carbon Dioxide Level 29 mmol/L Anion Gap 4.0 mmol/L Blood Urea Nitrogen 17 mg/dl Creatinine 1.07 mg/dl Est Creatinine Clear Calc Drug Dose 95.5 ml/min Estimated GFR () 90.1 Estimated GFR (Non- 77.7 BUN/Creatinine Ratio 16.1 Random Glucose 215 mg/dl Estimated Average Glucose 318 mg/dl Hemoglobin A1c 12.7 % Calcium Level 8.8 mg/dl Troponin I 0.053 ng/ml Triglycerides Level 737 mg/dl Cholesterol Level 254 mg/dl HDL Cholesterol 23 mg/dl LDL Cholesterol, Calculated mg/dl VLDL Cholesterol, Calculated mg/dl Cholesterol/HDL Ratio 11.0 Chemistry Specimen Hemolysis
[2017-10-02] MEDS: INSULIN GLARGINE SOLOSTAR 100 UNITS/ML 3 ML PEN SC SCH ×2 (10:31→20:44)
--- NOTE | 2017-10-02 10:40 | Pharmacy Progress Note ---
Pharmacy Glycemic Short Note 2 Date of Service Oct 02, 2017. OUTPATIENT ANTIDIABETIC REGIMEN: * No prior medications for DM * A1c 12.7% 10/02/17 ASSESSMENT: * Newly diagnosed type 2 diabetic with significantly elevated A1c (12.7%) admitted yesterday after presenting to ER with hypertensive urgency/emergency possible ACS * Patient has not followed up with a healthcare provider in many years and has just started seeing [facility] * Patient was given a single dose of Lantus 18 units last evening as well as Novolog SQ correction and carb ratio * Fasting BSGs elevated this AM (194-215) despite having some basal insulin on board - would recommend continuing Lantus using weight based, moderate stress dosing today * Patient will be NPO today for possible stress test / L heart cath * The current Novolog CF and CR are reasonable starting points. Will follow BSG pattern and adjust accordingly. PLAN FOR INPATIENT GLYCEMIC CONTROL: * Basal insulin * Lantus 18 units SQ BID - OK to give 18 units this AM despite NPO status * Bolus insulin * NovoLog per scale ACHS or Q6hrs while NPO * Goal Range: Low 110 mg/dL - High 140 mg/dL * Correction Factor: 20 mg/dL/unit * Nutritional / Prandial insulin per carb ratio of 1 unit per 7 grams CHO consumed PLAN FOR DISCHARGE: * Patient has significantly elevated A1c > 9 and will likely require insulin on discharge. May need to consider use of 70/30 insulin upon discharge if affordability of insulin an issue. Hopefully over the next day or two we will be able to determine what his daily insulin requirements are to recommend a discharge regimen. He will require prompt f/u with healthcare provider for medication adjustment within a week of discharge.
--- NOTE | 2017-10-02 12:21 | Pre Sedation Assessment ---
Pre Sedation Assessment General Date of Sedation: Oct 02, 2017. Vital Signs Past 12 Hours Date Time Temp Pulse Resp B/P (MAP) Pulse Ox O2 Delivery O2 Flow Rate FiO2 10/02/17 11:31 Room Air 10/02/17 11:06 36.7 84 20 168/98 (121) 94 Room Air 10/02/17 08:00 Room Air 10/02/17 07:14 36.5 81 20 164/103 (123) 95 Room Air 166/107 (126) 10/02/17 04:15 Room Air 10/02/17 03:38 36.5 73 18 137/89 (105) 96 Room Air Review Cardiovascular: regular rate, rhythm, no edema, no gallop Lungs: chest non-tender, lungs clear, normal breath sounds Pre-Sedation Airway Assessment Smoking Status: Never Smoker Hx of Sleep Apnea: No Short Thick Neck: No Thyro-mental Distance: > 3 Finger Breadths Oral Cavity: Dentures Mallampati Classification: Class II ASA Classification: Class III NPO Status Date of Last Intake of Fluids: Oct 01, 2017 Time of Last Intake of Fluids: 1899 Date of Last Intake of Solids: Oct 01, 2017 Time of Last Intake of Solids: 1899 Procedure Planning Contraindications for Sedation: None Current Medications Reviewed: Yes Notes The planned sedation has been discussed with the patient. Informed Consent was obtained. I have identified the patient, determined the appropriateness of sedation and have assessed the patient immediately prior to the procedure. All medicine(s) and interventions are by my order.
[2017-10-02] MEDS ORDERED: HEPARIN SOD (PORCINE) 1000 UNIT/ML 10 ML VIAL ONE ×2 (12:24→13:58)
[2017-10-02] MEDS ORDERED: NiCARDipine HCL INJ 2.5 MG/ML 10 ML AMP ONE (12:24)
[2017-10-02] MEDS ORDERED: NITROGLYCERIN/D5W 100MCG/ML 20ML SYR ONE (12:25)
[2017-10-02] MEDS ORDERED: FENTANYL CITRATE INJ 50 MCG/1 ML 2 ML VIAL ONE (12:26)
[2017-10-02] MEDS ORDERED: MIDAZOLAM HCL 1 MG/ML 2ML VIAL ONE (12:26)
[2017-10-02] MEDS ORDERED: LIDOCAINE HCL 1% 20 ML VIAL ONE (12:26)
[2017-10-02] MEDS ORDERED: ADENOSINE IV SOLN 3 MG/ML 20 ML VIAL ONE (13:13)
--- NOTE | 2017-10-02 13:22 | Post Sedation Assessment ---
Post Sedation Assessment General Date of Sedation Oct 02, 2017. Vital Signs: Vital Signs Past 12 Hours Date Time Temp Pulse Resp B/P (MAP) Pulse Ox O2 Delivery O2 Flow Rate FiO2 10/02/17 11:31 Room Air 10/02/17 11:06 36.7 84 20 168/98 (121) 94 Room Air 10/02/17 08:00 Room Air 10/02/17 07:14 36.5 81 20 164/103 (123) 95 Room Air 166/107 (126) 10/02/17 04:15 Room Air 10/02/17 03:38 36.5 73 18 137/89 (105) 96 Room Air Post Sedation Plan On clinical assessment, the patient appears to have tolerated the sedation without complications. Patient is recovering as anticipated. Patient will continue to be monitored by nursing and may be discharged when sedation discharge criteria are met per below protocol. Upon Completions of procedure and additional 15 minutes continue every 5 minute vital signs and the P.A.R. score; then discharge to a Phase I or Fast Track to Phase II per the following guidelines: * Discharge Patient to appropriate Phase II area if PAR is 8 or greater or return to pre- procedure baseline. The post - procedure orders will be as directed. * If PAR score is less than 8 or not return to pre-procedure baseline then patient will follow Phase I monitoring till PAR is reached for Phase II. The Phase I may be done in procedure room or may call to secure a Phase I area. * If naloxone or flumazenil are used for reversal, hold in Phase I for an additional 60 -120 minutes before discharge to Phase II. Please call the Sedation Physician to re-evaluate and complete post-note for discharge to Phase II area. Do NOT discharge from procedure sedation or Phase 1 until post- sedation evaluation note is complete by procedure /sedation MD Sedation Discharge Instructions to be given to the patient at discharge to home.
--- NOTE | 2017-10-02 13:26 | [facility] Post Operative Brief Note ---
Preliminary Procedure Note Procedure Date Oct 02, 2017. Pre-Procedure Diagnosis Non STEMI AUC Score 8 Post-Procedure Diagnosis Severe CAD Procedure(s) Performed Coronary Angiography, Left Heart Cath Supervisor Whipped Topping Dr. Ron Supervisor Grower(s) Valentina FOOD SERVICE AMBASSADOR Estimated Blood Loss 8cc Medication(s) Fentanyl, Heparin, Nicardipine, Nitroglycerin, Versed, Lidocaine 1% Preliminary Findings 80% proximal RPDA 70% mid to distal LAD 70% proximal Lcx Recommendations PCI without planned CABG (FFR LAD and Lcx) Specimens None Anesthesia Moderate sedation. Start 1231. End 1308. 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
--- NOTE | 2017-10-02 13:46 | Progress Note ---
Medicine Progress Note Date & Time of Visit: Oct 02, 2017 at 13:34. Subjective Patient seen earlier this morning, states he feels great other than not sleeping well last night. No overnight events noted. Is NPO for possible cath today. No other complaints at this time. Denies any CP, SOB, N/V/D. No events noted on tele. Objective Last 8 Hrs Date Time Temp Pulse Resp B/P (MAP) Pulse Ox O2 Delivery O2 Flow Rate FiO2 10/02/17 11:31 Room Air 10/02/17 11:06 36.7 84 20 168/98 (121) 94 Room Air 10/02/17 08:00 Room Air 10/02/17 07:14 36.5 81 20 164/103 (123) 95 Room Air 166/107 (126) Physical Exam: GENERAL: Patient is in no acute distress. HEENT: No acute trauma, normocephalic, mucous membranes moist, no nasal congestion, no scleral icterus. NECK: No stridor, trachea is midline. LUNGS: Clear to auscultation bilaterally, no wheeze, no rhonchi, breath sounds equal. HEART: Without murmurs gallops or rubs, regular rate and rhythm. ABDOMEN: Soft, nontender, bowel sounds positive EXTREMITIES: No cyanosis or edema, moving all extremities without pain or difficulty, no signs for acute trauma. NEUROLOGIC: Oriented x 3, no acute motor or sensory deficits, no focal weakness. SKIN: No rash, no jaundice, no diaphoresis. Laboratory Results: Last 24 Hours Test 10/01/17 14:18 10/01/17 16:10 10/01/17 16:14 10/01/17 20:40 Hepatitis C Antibody Screen NEG Bedside Glucose 200 mg/dl Prothrombin Time 10.6 SECONDS Prothromb Time International Ratio 1.0 Total Creatine Kinase 80 U/L Troponin I 0.073 ng/ml 0.073 ng/ml LDL Cholesterol Direct 139 mg/dl Thyroid Stimulating Hormone (TSH) 1.550 uIu/ml Test 10/01/17 20:45 10/02/17 00:10 10/02/17 02:10 10/02/17 06:37 Bedside Glucose 192 mg/dl 194 mg/dl Urine Opiates Screen NEG Urine Methadone, Qualitative NEG Urine Barbiturates NEG Urine Phencyclidine (PCP) Level NEG Ur Amphetamine/Methamphetamine NEG MDMA (Ecstasy) Screen NEG Urine Benzodiazepines Screen NEG Urine Cocaine Metabolite NEG Urine Marijuana (THC) NEG Troponin I 0.069 ng/ml Test 10/02/17 07:00 10/02/17 11:07 Sodium Level 136 mmol/L Potassium Level 4.0 mmol/L Chloride Level 103 mmol/L Carbon Dioxide Level 29 mmol/L Anion Gap 4.0 mmol/L Blood Urea Nitrogen 17 mg/dl Creatinine 1.07 mg/dl Est Creatinine Clear Calc Drug Dose 95.5 ml/min Estimated GFR () 90.1 Estimated GFR (Non- 77.7 BUN/Creatinine Ratio 16.1 Random Glucose 215 mg/dl Estimated Average Glucose 318 mg/dl Hemoglobin A1c 12.7 % Calcium Level 8.8 mg/dl Troponin I 0.053 ng/ml Triglycerides Level 737 mg/dl Cholesterol Level 254 mg/dl HDL Cholesterol 23 mg/dl LDL Cholesterol, Calculated mg/dl VLDL Cholesterol, Calculated mg/dl Cholesterol/HDL Ratio 11.0 Chemistry Specimen Hemolysis Bedside Glucose 204 mg/dl Assessment & Plan HTN URGENCY: -was given labetalol 10mg IV in ER with continued HTN -labetolol IV prn HTN was added -Started lisinopril PO and lopressor on admission; further titration as needed for BP control -monitor ELEVATED TROPONIN: -trending down since admission Troponin of 0.076 -EKG did not show acute ST or T wave changes -No typical symptoms of CP, SOB, dizziness, FRANK, diaphoresis -Risk factors:HTN, probable underlying DM, obesity, FHx of CAD -not events noted on tele monitor -Cardiology consulted, planning for cath today per their note -TTE report: * -- Conclusions -- * Ejection Fraction = 55-60%. * Mild hypokinesis of the basal and mid inferior wall and basal posterior wall. * Otherwise, normal wall motion. * There is mild concentric left ventricular hypertrophy. * Grade I diastolic dysfunction, (abnormal relaxation pattern). * No significant valvular pathology. -lipid panel: total 254, HDL 23 -tox screen added -TSH normal -continued on ASA, metoprolol -Nitro prn CP and repeat EKG for CP *Update*-patient underwent a cath, found to have severe CAD, had PCI with FRANCISCO J to the LAD, and right PDA HYPERGLYCEMIA: NEWLY DIAGNOSED DM -Glucose: 278 on admission -HbA1c: 12.1% -NovoLog and Lantus per protocol -Diabetes education consulted HYPERLIPIDEMIA: -started on statin last night, continued -total cholesterol 254 INDIGESTION, N/V/D, ABDOMINAL PAIN -reports frequent indigestion symptoms ~ 5-7 days a week for 4 years -also reports N/V/D and mid abdominal pain after eating fatty/greasy foods, last occurrence 2 weeks ago -RUQ/gallbladder US: Normal gallbladder. No gallstones. Hepatic steatosis. The pancreas was obscured by overlying bowel gas. -Maalox prn indigestion -pt may need PPI trial and will definitely need GI follow up as an outpatient for screening colonoscopy and further evaluation of above symptoms Current Inpatient Medications: Current Inpatient Medications Medications (Trade) Dose Ordered Sig/Liu Route Start Time Stop Time Status Last Admin Dose Admin Labetalol HCl (Normodyne IV) 10 mg Q6 PRN IV 10/01/17 15:15 10/31/17 15:14 Heparin Sodium (Porcine) (Heparin Sq 5000 Unit/0.5ml) 5,000 unit Q12 SQ 10/01/17 21:00 10/31/17 20:59 10/02/17 07:57 5,000 UNIT Acetaminophen (Tylenol Tab) 650 mg Q4H PRN PO 10/01/17 15:15 10/31/17 15:14 Al Hydrox/Mg Hydrox/Simethicone (Maalox Max Susp) 15 ml Q4H PRN PO 10/01/17 15:15 10/31/17 15:14 Magnesium Hydroxide (Milk Of Magnesia Susp) 30 ml Q12H PRN PO 10/01/17 15:15 10/31/17 15:14 Ondansetron HCl (Zofran Inj) 4 mg Q6H PRN IV 10/01/17 15:15 10/31/17 15:14 Nitroglycerin (Nitrostat Tab) 0.4 mg UD PRN SL 10/01/17 15:15 10/31/17 15:14 Aspirin (Ecotrin Tab) 81 mg QAM PO 10/02/17 09:00 11/01/17 08:59 10/02/17 09:31 81 MG Polyethylene (Miralax Powder Packet) 17 gm DAILY PRN PO 10/01/17 15:15 10/31/17 15:14 Insulin Aspart (novoLOG ASPART) SLIDING SCALE If C... ACHS SC 10/01/17 16:15 10/31/17 16:14 10/02/17 07:57 3 UNITS Glucose (Glucose 40% Gel) 15-30 GRAMS 15 GRAMS... UD PRN PO 10/01/17 15:15 10/31/17 15:14 Glucose (Glucose Chew Tab) 4-8 Tablets 4 Tabl... UD PRN PO 10/01/17 15:15 10/31/17 15:14 Dextrose (Dextrose 50% 50ML Syringe) 25-50ML OF 50% DW IV FOR... UD PRN IV 10/01/17 15:15 10/31/17 15:14 Glucagon (Glucagon Inj) 1 mg UD PRN SQ 10/01/17 15:15 10/31/17 15:14 Miscellaneous Information (Consult Glycemic Management Pharmacy) 1 ea UD PRN N/A 10/01/17 15:22 10/31/17 15:21 Metoprolol Tartrate (Lopressor Tab) 25 mg BID PO 10/01/17 21:00 10/31/17 20:59 10/02/17 07:58 25 MG Atorvastatin Calcium (Lipitor Tab) 40 mg HS PO 10/01/17 21:00 10/31/17 20:59 10/01/17 21:02 40 MG Lorazepam (Ativan Tab) 0.5 mg Q8H PRN PO 10/01/17 21:00 10/31/17 20:59 Lisinopril (Zestril Tab) 10 mg QAM PO 10/03/17 09:00 11/02/17 08:59 Insulin Glargine (Lantus Solostar Pen) 18 units BID SC 10/02/17 10:00 11/01/17 09:59 10/02/17 10:31 18 UNITS
[2017-10-02] MEDS ORDERED: TICAGRELOR 90 MG TAB PO ONE (14:33)
--- NOTE | 2017-10-02 14:39 | Post Sedation Assessment ---
Post Sedation Assessment General Date of Sedation Oct 02, 2017. Vital Signs: Vital Signs Past 12 Hours Date Time Temp Pulse Resp B/P (MAP) Pulse Ox O2 Delivery O2 Flow Rate FiO2 10/02/17 11:31 Room Air 10/02/17 11:06 36.7 84 20 168/98 (121) 94 Room Air 10/02/17 08:00 Room Air 10/02/17 07:14 36.5 81 20 164/103 (123) 95 Room Air 166/107 (126) 10/02/17 04:15 Room Air 10/02/17 03:38 36.5 73 18 137/89 (105) 96 Room Air Post Procedure Recovery Score Activity: (2) Moves 4 extremities * Respiration: (2) Deep breath/cough Circulation: (2) +/-20% PreAnes Value Consciousness: (2) Fully Awake Oxygen Saturation: (2) > 92% On Room Air Post Anesthesia Score: 10 Discharge Sedation Level of Care: Fast Track Phase II Post Sedation Plan On clinical assessment, the patient appears to have tolerated the sedation without complications. Patient is recovering as anticipated. Patient will continue to be monitored by nursing and may be discharged when sedation discharge criteria are met per below protocol. Upon Completions of procedure and additional 15 minutes continue every 5 minute vital signs and the P.A.R. score; then discharge to a Phase I or Fast Track to Phase II per the following guidelines: * Discharge Patient to appropriate Phase II area if PAR is 8 or greater or return to pre- procedure baseline. The post - procedure orders will be as directed. * If PAR score is less than 8 or not return to pre-procedure baseline then patient will follow Phase I monitoring till PAR is reached for Phase II. The Phase I may be done in procedure room or may call to secure a Phase I area. * If naloxone or flumazenil are used for reversal, hold in Phase I for an additional 60 -120 minutes before discharge to Phase II. Please call the Sedation Physician to re-evaluate and complete post-note for discharge to Phase II area. Do NOT discharge from procedure sedation or Phase 1 until post- sedation evaluation note is complete by procedure /sedation MD Sedation Discharge Instructions to be given to the patient at discharge to home.
--- NOTE | 2017-10-02 14:54 | Cardiac Catheterization ---
Procedure Note Procedure Date Oct 02, 2017. Pre-Procedure Diagnosis Non STEMI AUC Score 8 Post-Procedure Diagnosis Severe CAD, Successful PCI Procedure(s) Performed Drug Eluting Stent, Fractional Flow [employer] Turner Chong Clinical Esthetician(s) Valentina Estimated Blood Loss 15 Medication(s) Fentanyl, Heparin, Nicardipine, Nitroglycerin, Versed Summary of Findings Indication: NSTEMI, new LV regional wall motion abnormalities on echo Access: 6 FR right radial artery Catheters: Ikari 3.5 guide Findings: For full details of patient's coronary angiography please cath report dictated by Dr. Ron. Briefly, patient found to have multi vessel disease involving his mid to distal LAD, mid circumflex and proximal PDA (80 percent stenosis). Decision to FFR circumflex and LAD with plan for PCI of PDA. FFR wire placed into distal OM2. iFR mid circumflex 1.01 FFR mid circumflex 0.85 FFR wire removed from circumflex and placed into distal LAD FFR mid to distal LAD 0.8--decision to proceed with PCI. -- PCI of mid distal LAD and proximal PDA-- Antithrombotic therapy: Heparin, ticagrelor Procedure: Left main cannulated with Ikari 3.5 guide BMW wire passed across lesion into distal LAD Mid to distal LAD lesion predilated with 2.5 compliant balloon Dilated lesion stented with 3.5 x 23 Xience drug-eluting stent Stent post-dilated with 3.75 noncompliant balloon IC vasodilators administered for spasm Post procedure [place] 3 flow, stent well expanded with minimal residual stenosis and no apparent cardiac complications. Ikari guide than used to cannulate RCA BMW wire passed across the lesion into distal PDA Proximal PDA stenosis dilated with 2.5 balloon 2.75 x 15 Xience drug-eluting stent placed from ostium of PDA Stent post dilated with a stent balloon IC vasodilators administered for spasm Post procedure [place] 3 flow, stent well expanded with minimal residual stenosis and no apparent cardiac complications. Arterial Closure: TR band Summary: 1. Multivessel coronary artery disease -80 percent proximal right PDA -60-70 percent mid to distal LAD (FFR 0.8) -60 percent hazy mid circumflex (FFR 0.85) 2. Successful PCI of mid to distal LAD with single drug-eluting stent (3.5 x 23 Xience FRANCISCO J; post dilated with 3.75 NC) 3. Successful PCI of proximal right PDA with single drug-eluting stent (2.75 x 15 Xience FRANCISCO J) Recommendations: To PCU for continued monitoring Loaded with ticagrelor 180 milligrams in medical laboratory manager Continue dual-antiplatelet therapy for at least 1 year Continue statin, and ASCVD risk factor modification Consult cardiac Rehab Hemodynamics Rest Ao: 134/82/106 Final Ao: 123/82/101 LV: -- Recommendations PCI without planned CABG Specimens None Radiation Exposure (mGy) 5989 Contrast (mls) 295 Opti Fluids (cc crystalloids) 135 Drains None Anesthesia Moderate Procedural Complication(s) None Disposition PCU ACC Data Cardiac Status Clinical evaluation leading to the procedure CAD Presntation: Non STEMI Anginal Classification: CCS IV Heart Failure: No, NYHA Class: CCS I Cardiogenic Shock w/in 24Hrs: No Cardiac Arrest w/in 24Hrs: No Imaging studies past 6 months: Yes Stress studies past 6 months: No Diagnostic Physician's Name: Ab Ron, Status: Elective Closure Device Percutaneous Entry Location: Radial Closure Device: Mynx Recommendations: PCI without planned CABG PCI Indication: PCI for high risk Non-STEMI Lesion Segment Name: proximal R-PDA Culprit Artery: Yes Stenosis Prior to Rx (%): 80 Chronic Total Occlusion: No IVUS: No FFR: No Pre-Procedure [place] Flow: 3 Previously Treated Lesion: No Lesion Complexity: Non-High/Non-C Lesion Length (mm): 12 Thrombus Present: No Bifurcation Lesion: No Guidewire Across Lesion: Yes Guidewire: Stenosis Post-Procedure (%): 0 Post-Procedure [place] Flow: 3 Device(s) Deployed: Yes Lesion #2 Segment Name: mid to distal LAD Culprit Artery: No Stenosis Prior to Rx (%): 60-70 Chronic Total Occlusion: No IVUS: No FFR: Yes Ratio: greater than 0.75% Pre-Procedure [place] Flow: 3 Previously Treated Lesion: No Lesion Complexity: Non-High/Non-C Lesion Length (mm): 18 Thrombus Present: No Bifurcation Lesion: No Guidewire Across Lesion: Yes Guidewire: Stenosis Post-Procedure (%): 0 Post-Procedure [place] Flow: 3 Device(s) Deployed: Yes Intraprocedure Events Significant Dissection: No Perforation: No
[2017-10-02] MEDS: SODIUM CHLORIDE 0.9% 1000ML 1,000 ML IV SCH ×2 (15:00→22:20)
[2017-10-02] MEDS: ATORVASTATIN 40 MG TAB PO SCH (20:35)
[2017-10-02] MEDS: TICAGRELOR 90 MG TAB PO SCH (21:54)
[2017-10-03] VITALS (12 sets, daily range): BP systolic 129–185; BP diastolic 87–180; PULSE 75–82; TEMP 36.6–37.1; O2SAT 95–99
[2017-10-03 06:31] LABS: CALCIUM 8.8 mg/dl (8.5-10.1); CREATININE 0.96 mg/dl (0.60-1.40)
[2017-10-03] MEDS: TICAGRELOR 90 MG TAB PO SCH (07:57)
[2017-10-03] MEDS: METOPROLOL TARTRATE 25 MG TAB PO SCH (07:57)
[2017-10-03] MEDS: ASPIRIN 81 MG ECTAB PO SCH (07:57)
[2017-10-03] MEDS: LISINOPRIL 10 MG TAB PO SCH (07:58)
[2017-10-03] MEDS: INSULIN ASPART 100 UNITS/ML 3 ML PEN SC SCH ×4 (08:02→20:45)
[2017-10-03] MEDS: INSULIN GLARGINE SOLOSTAR 100 UNITS/ML 3 ML PEN SC SCH ×2 (08:04→20:46)
[2017-10-03] MEDS: HEPARIN SOD 5000 UNIT/0.5 ML CARP SQ SCH ×2 (08:07→20:50)
--- NOTE | 2017-10-03 10:00 | Cardiology Follow-Up ---
Subjective General Date of Service: Oct 03, 2017. Pt evaluation today including: conversation w/ patient, physical exam, chart review, lab review, review of studies, conversation w/ customer service sales consultant, review of inpatient medication list History of Present Illness The patient is a 57 year old male seen in follow-up. Feeling better today. Reports improved energy levels. Denies chest pain or shortness of breath. Mild right anterior wrist discomfort with mild ecchymosis however, without hematoma. Tolerating current medications. Offers no complaints. Allergies Coded Allergies: No Known Allergies (Unverified , 10/01/17) Social History Smoking Status: Never Smoker Hx Alcohol Use - Type And Amou: No Hx Substance Use - Type And Am: No Problem List Medical Problems: (1) Elevated troponin Status: Acute Review of Systems Respiratory: No cough, No sputum, No wheezing, No shortness of breath, No dyspnea on exertion, No dyspnea at rest, No hemoptysis Cardiac: No chest pain, No orthopnea, No PND, No edema, No claudication, No palpitations Physical Exam Vital Signs Last Vital Signs Documentation Date Time Temp Pulse Resp B/P (MAP) Pulse Ox O2 Delivery O2 Flow Rate FiO2 10/03/17 08:00 Room Air 10/03/17 07:01 36.6 76 18 152/99 (116) 97 10/02/17 17:00 4.0 Physical Exam Constitutional: General Apperance: overweight Level of Distress: NAD Ambulation: ambulating normally Head: normocephalic, atraumatic ENMT: normal ENT inspection Lungs: Respiratory effort: no dyspnea Auscultation: breath sounds normal, no wheezing, no rales/crackles, no rhonchi Cardiovascular: Heart Auscultation: RRR, normal S1, normal S2, no murmurs, no rubs, no gallops Peripheral Pulses: Radial Pulse: normal on the right Femoral Pulse: normal on the right Musculoskeletal: normal strength (5/5 throughout) Extremities: no cyanosis, no edema, no clubbing, no ulcers, pertinent finding ( Mild right anterior wrist ecchymosis.) Neurologic: Gait & Station: pertinent finding (No focal motor deficit) Cranial Nerves: grossly intact Assessment and Plan Assessment and Plan Final impression: 1. 57-year-old male presents with elevated troponin suggestive of recent NSTEMI with echocardiographic evidence of small posterior / inferior infarct. Cardiac catheterization revealed multivessel CAD with 70% LAD (significant by FFR), 80% proximal RPDA stenosis, and 70% left circumflex stenosis (not significant by FFR). He received a drug-eluting stent to the mid LAD as well as a drug-eluting stent to the RPDA 10/02/17. No complications. 2. HTN - improved with addition of lisinopril and beta-xochitl 3. DM-2 4. Dyslipidemia Plan/Recommendations: Patient will be transitioned from Brilinta to Plavix due to financial constraints. Brilinta discontinued. I have ordered a 300 mg dose of Plavix to be given at 2 PM today. He will then continue Plavix 75 mg daily. Atorvastatin will be titrated to 80 mg daily with plans for repeat fasting lipid panel and CMP in 6-12 weeks. Other cardiovascular medications including lisinopril, beta-xochitl, aspirin will be continued as previously ordered. Cardiac rehab recommended. Diabetes management as per internal medicine. Patient may be discharged from a cardiac perspective. Outpatient follow-up in 1 -2 weeks. Laboratory Results Last 24 Hours Test 10/02/17 11:07 10/02/17 13:54 10/02/17 14:16 10/02/17 15:22 Bedside Glucose 204 mg/dl Kaolin Activated Coagulation Time 213 SECONDS 257 SECONDS Troponin I 0.045 ng/ml Test 10/02/17 16:20 10/02/17 20:34 10/03/17 05:17 10/03/17 07:03 Bedside Glucose 164 mg/dl 180 mg/dl 165 mg/dl Sodium Level 136 mmol/L Potassium Level 4.0 mmol/L Chloride Level 106 mmol/L Carbon Dioxide Level 28 mmol/L Anion Gap 2.0 mmol/L Blood Urea Nitrogen 15 mg/dl Creatinine 0.96 mg/dl Est Creatinine Clear Calc Drug Dose 106.5 ml/min Estimated GFR () 102.7 Estimated GFR (Non- 88.6 BUN/Creatinine Ratio 16.1 Random Glucose 145 mg/dl Calcium Level 8.8 mg/dl
[2017-10-03] MEDS ORDERED: PLV75 PO (11:29)
[2017-10-03] MEDS ORDERED: ASPI-320 PO (11:29)
[2017-10-03] MEDS ORDERED: LSN10 PO (11:29)
[2017-10-03] MEDS ORDERED: LPT40 PO (11:29)
[2017-10-03] MEDS ORDERED: LPR25 PO (11:29)
--- NOTE | 2017-10-03 11:34 | Discharge Instructions ---
Discharge Instructions Date of Service Oct 03, 2017. Admission Reason for Admission: Hypertensive Urgency Discharge Discharge Diagnosis / Problem: CAD, HTN Urgency, Diabetes Discharge Goals Goal(s): Diagnostic testing, Therapeutic intervention Activity Recommendations Activity Limitations: as noted below Lifting Limitations: none, gradually increase as tolerated Exercise/Sports Limitations: rest today, gradually increase as tolerated . Instructions / Follow-Up Instructions / Follow-Up Please make sure you obtain and take all medications that are prescribed; especially the aspirin and plavix which should not be stopped due to your new stents Please follow up with your Physician at [facility] on October 08 at 9:30 AM ) they will provide a glucometer and supplies, as well as medications at that appointment Please follow up with Cardiology as already scheduled Please follow up Marcus Limon on October 21 at 10:45 AM to establish care with a new Primary care physician Please begin taking Metformin "Glucophage" at a dose of 500 mg (1 tablet) daily for 3 days, then increased to 1 tablet twice a day for 3 days, then increase to 2 tablets in the morning and 1 at night for 3 days, and then increase to the goal of 2 tablets in the AM and 2 tablets in the PM Current Hospital Diet Patient's current hospital diet: AHA Diet (Heart Healthy), Diabetes Type 2 Diet Discharge Diet Recommended Diet: AHA Diet (Heart Healthy), Diabetes Type 2 Diet Pending Studies Studies pending at discharge: no Laboratory Results Hemoglobin A1c Test 10/02/17 07:00 Range/Units Estimated Average Glucose 318 mg/dl Hemoglobin A1c 12.7 H 4.5-5.6 % Lipid Panel Test 10/02/17 07:00 Range/Units Triglycerides Level 737 H 0-150 mg/dl Cholesterol Level 254 H 0-200 mg/dl HDL Cholesterol 23 mg/dl Cholesterol/HDL Ratio 11.0 LDL Cholesterol, Calculated mg/dl Medical Emergencies . Who to Call and When: Medical Emergencies: If at any time you feel your situation is an emergency, please call 911 immediately. . Non-Emergent Contact Non-Emergency issues call your: Primary Care Provider, Stave Bolt Equalizer . . "Provider Documentation" section prepared by Elba Lan. .
--- NOTE | 2017-10-03 11:43 | Pharmacy Progress Note ---
Pharmacy Glycemic Short Note 2 Date of Service Oct 03, 2017. OUTPATIENT ANTIDIABETIC REGIMEN: * No prior medications for DM * A1c 12.7% 10/02/17 Test 10/02/17 16:20 10/02/17 20:34 10/03/17 05:17 10/03/17 07:03 Bedside Glucose 164 mg/dl (70-99) 180 mg/dl (70-99) 165 mg/dl (70-99) Random Glucose 145 mg/dl (70-99) ASSESSMENT: * Newly diagnosed type 2 diabetic with significantly elevated A1c (12.7%) admitted 10/01 after presenting to ER with hypertensive urgency/emergency possible ACS * Patient has not followed up with a healthcare provider in many years and has just started seeing [facility] * Blood sugars at goal PLAN FOR INPATIENT GLYCEMIC CONTROL: * Basal insulin * Lantus 18 units SQ BID * Bolus insulin * NovoLog per scale ACHS or Q6hrs while NPO * Goal Range: Low 110 mg/dL - High 140 mg/dL * Correction Factor: 20 mg/dL/unit * Nutritional / Prandial insulin per carb ratio of 1 unit per 7 grams CHO consumed PLAN FOR DISCHARGE: * Patient has significantly elevated A1c > 9 and will likely require insulin on discharge. May need to consider use of 70/30 insulin upon discharge if affordability of insulin an issue. He will require prompt f/u with healthcare provider for medication adjustment within a week of discharge. * Recommend * Metformin - start with 500mg po daily, titrate up by 500mg every 3 days to 1000mg PO BID with meals * Insulin - either Lantus 18 units SQ BID OR Novolin (Relion - [employer] brand) 70/30 - 16 units SQ BID with breakfast and dinner
[2017-10-03] MEDS: LABETALOL HCL IV 5 MG/ML 20ML IV PRN ×2 (12:20→23:33)
[2017-10-03] MEDS ORDERED: METOPROLOL TARTRATE 25 MG TAB PO STA (12:58)
[2017-10-03] MEDS ORDERED: CLOPIDOGREL BISULFATE 300 MG TAB PO ONE (14:00)
[2017-10-03] MEDS ORDERED: LISINOPRIL 10 MG TAB PO ONE (17:00)
--- NOTE | 2017-10-03 17:39 | Progress Note ---
Medicine Progress Note Date & Time of Visit: Oct 03, 2017 at 17:30. Subjective Patient doing well, is definitely worried about his BP and does appear a bit apprehensive about his BP being higher than it has been. No overnight events noted, states he slept well. Tolerating PO without difficulty. Denies any CP or SOB. States he feels great other than being worried about his BP. No other complaints at this time. Objective Last 8 Hrs Date Time Temp Pulse Resp B/P (MAP) Pulse Ox O2 Delivery O2 Flow Rate FiO2 10/03/17 16:37 78 158/105 (122) 10/03/17 15:15 36.9 79 22 179/180 (180) 95 10/03/17 12:45 81 153/97 (115) 10/03/17 12:20 82 185/111 (135) 10/03/17 12:00 Room Air 10/03/17 11:35 37.1 80 20 179/108 (131) 96 Room Air Physical Exam: GENERAL: Patient is in no acute distress. HEENT: No acute trauma, normocephalic, mucous membranes moist, no nasal congestion, no scleral icterus. NECK: No stridor, trachea is midline. LUNGS: Clear to auscultation bilaterally, no wheeze, no rhonchi, breath sounds equal. HEART: Without murmurs gallops or rubs, regular rate and rhythm. ABDOMEN: Soft, nontender, bowel sounds positive EXTREMITIES: No cyanosis or edema, moving all extremities without pain or difficulty, no signs for acute trauma. NEUROLOGIC: Oriented x 3, no acute motor or sensory deficits, no focal weakness. SKIN: No rash, no jaundice, no diaphoresis. Laboratory Results: Last 24 Hours Test 10/02/17 20:34 10/03/17 05:17 10/03/17 07:03 10/03/17 11:31 Bedside Glucose 180 mg/dl 165 mg/dl 169 mg/dl Sodium Level 136 mmol/L Potassium Level 4.0 mmol/L Chloride Level 106 mmol/L Carbon Dioxide Level 28 mmol/L Anion Gap 2.0 mmol/L Blood Urea Nitrogen 15 mg/dl Creatinine 0.96 mg/dl Est Creatinine Clear Calc Drug Dose 106.5 ml/min Estimated GFR () 102.7 Estimated GFR (Non- 88.6 BUN/Creatinine Ratio 16.1 Random Glucose 145 mg/dl Calcium Level 8.8 mg/dl Test 10/03/17 16:05 Bedside Glucose 141 mg/dl Assessment & Plan CAD/Recent NSTEMI: -had a slight troponin elevation on admission which appeared to trend down -patient underwent a cath, found to have severe CAD, had PCI with FRANCISCO J to the mid to distal LAD, and right PDA -was initially on ticagrelor but due to financial constraints this was changed to clopidogrel today by Cardio -continued on ASA, statin, metoprolol and lisinopril HTN URGENCY: -was given labetalol 10mg IV in ER with continued HTN -labetolol IV prn HTN was added, was given a dose today due to elevated BP again -Started lisinopril PO and lopressor on admission; further titration as needed for BP control; increased lisinopril and metoprolol -monitor ELEVATED TROPONIN: -trending down since admission Troponin of 0.076 -EKG did not show acute ST or T wave changes -No typical symptoms of CP, SOB, dizziness, FRANK, diaphoresis -Risk factors:HTN, probable underlying DM, obesity, FHx of CAD -not events noted on tele monitor -Cardiology consulted, appreciate recs, planning for follow up via [facility] in about 1-2 weeks -TTE report: * -- Conclusions -- * Ejection Fraction = 55-60%. * Mild hypokinesis of the basal and mid inferior wall and basal posterior wall. * Otherwise, normal wall motion. * There is mild concentric left ventricular hypertrophy. * Grade I diastolic dysfunction, (abnormal relaxation pattern). * No significant valvular pathology. -lipid panel: total 254, HDL 23 -tox screen neg -TSH normal -continued on ASA, metoprolol -Nitro prn CP and repeat EKG for CP HYPERGLYCEMIA: NEWLY DIAGNOSED DM -Glucose: 278 on admission -HbA1c: 12.1% -NovoLog and Lantus per protocol -Diabetes education consulted HYPERLIPIDEMIA: -started on statin last night, continued -total cholesterol 254 INDIGESTION, N/V/D, ABDOMINAL PAIN -reports frequent indigestion symptoms ~ 5-7 days a week for 4 years -also reports N/V/D and mid abdominal pain after eating fatty/greasy foods, last occurrence 2 weeks ago -RUQ/gallbladder US: Normal gallbladder. No gallstones. Hepatic steatosis. The pancreas was obscured by overlying bowel gas. -Maalox prn indigestion -pt may need PPI trial and will definitely need GI follow up as an outpatient for screening colonoscopy and further evaluation of above symptoms Current Inpatient Medications: Current Inpatient Medications Medications (Trade) Dose Ordered Sig/Liu Route Start Time Stop Time Status Last Admin Dose Admin Labetalol HCl (Normodyne IV) 10 mg Q6 PRN IV 10/01/17 15:15 10/31/17 15:14 10/03/17 12:20 10 MG Heparin Sodium (Porcine) (Heparin Sq 5000 Unit/0.5ml) 5,000 unit Q12 SQ 10/01/17 21:00 10/31/17 20:59 10/03/17 08:07 5,000 UNIT Acetaminophen (Tylenol Tab) 650 mg Q4H PRN PO 10/01/17 15:15 10/31/17 15:14 Al Hydrox/Mg Hydrox/Simethicone (Maalox Max Susp) 15 ml Q4H PRN PO 10/01/17 15:15 10/31/17 15:14 Magnesium Hydroxide (Milk Of Magnesia Susp) 30 ml Q12H PRN PO 10/01/17 15:15 10/31/17 15:14 Ondansetron HCl (Zofran Inj) 4 mg Q6H PRN IV 10/01/17 15:15 10/31/17 15:14 Nitroglycerin (Nitrostat Tab) 0.4 mg UD PRN SL 10/01/17 15:15 10/31/17 15:14 Aspirin (Ecotrin Tab) 81 mg QAM PO 10/02/17 09:00 11/01/17 08:59 10/03/17 07:57 81 MG Polyethylene (Miralax Powder Packet) 17 gm DAILY PRN PO 10/01/17 15:15 10/31/17 15:14 Insulin Aspart (novoLOG ASPART) SLIDING SCALE If C... ACHS SC 10/01/17 16:15 10/31/17 16:14 10/03/17 16:56 7 UNITS Glucose (Glucose 40% Gel) 15-30 GRAMS 15 GRAMS... UD PRN PO 10/01/17 15:15 10/31/17 15:14 Glucose (Glucose Chew Tab) 4-8 Tablets 4 Tabl... UD PRN PO 10/01/17 15:15 10/31/17 15:14 Dextrose (Dextrose 50% 50ML Syringe) 25-50ML OF 50% DW IV FOR... UD PRN IV 10/01/17 15:15 10/31/17 15:14 Glucagon (Glucagon Inj) 1 mg UD PRN SQ 10/01/17 15:15 10/31/17 15:14 Miscellaneous Information (Consult Glycemic Management Pharmacy) 1 ea UD PRN N/A 10/01/17 15:22 10/31/17 15:21 Metoprolol Tartrate (Lopressor Tab) 25 mg BID PO 10/01/17 21:00 10/31/17 20:59 10/03/17 07:57 25 MG Lorazepam (Ativan Tab) 0.5 mg Q8H PRN PO 10/01/17 21:00 10/31/17 20:59 Lisinopril (Zestril Tab) 10 mg QAM PO 10/03/17 09:00 11/02/17 08:59 10/03/17 07:58 10 MG Insulin Glargine (Lantus Solostar Pen) 18 units BID SC 10/02/17 10:00 11/01/17 09:59 10/03/17 08:04 18 UNITS Clopidogrel Bisulfate (plAVix TAB) 75 mg QAM PO 10/04/17 09:00 11/03/17 08:59 Atorvastatin Calcium (Lipitor Tab) 80 mg HS PO 10/03/17 21:00 10/31/17 20:59
[2017-10-03] MEDS ORDERED: ATORVASTATIN 40 MG TAB PO SCH (21:00)
[2017-10-03] MEDS ORDERED: METOPROLOL TARTRATE 25 MG TAB PO SCH (21:00)
[2017-10-04 01:00] VITALS: BP 132/84
[2017-10-04 04:25] VITALS: BP 122/72; PULSE 73; TEMP 37; O2SAT 99
[2017-10-04 06:14] LABS: HEMATOCRIT 42.8 % (42-52); HEMOGLOBIN 15.1 g/dL (14.0-18.0); MEAN CELL VOLUME 80.8 fL (80-100); MEAN CORPUSCULAR HEMOGLOBIN 28.5 pg (25-34); MEAN CORPUSCULAR HGB CONC 35.3 g/dl (32-36); MEAN PLATELET VOLUME 9.1 fL (7.4-10.4); PLATELET COUNT 218 K/uL (130-400); RED CELL DISTRIBUTION WIDTH CV 13.1 % (11.5-14.5); RED CELL DISTRIBUTION WIDTH SD 38.5 fL (36.4-46.3)
[2017-10-04 06:54] LABS: CALCIUM 9.2 mg/dl (8.5-10.1); CREATININE 1.04 mg/dl (0.60-1.40)
[2017-10-04 07:22] VITALS: BP 140/92; PULSE 77; TEMP 36.6; O2SAT 98
[2017-10-04] MEDS: LISINOPRIL 10 MG TAB PO SCH (07:51)
[2017-10-04] MEDS: ASPIRIN 81 MG ECTAB PO SCH (07:51)
[2017-10-04] MEDS: HEPARIN SOD 5000 UNIT/0.5 ML CARP SQ SCH (07:53)
[2017-10-04] MEDS: INSULIN GLARGINE SOLOSTAR 100 UNITS/ML 3 ML PEN SC SCH (07:54)
[2017-10-04] MEDS: INSULIN ASPART 100 UNITS/ML 3 ML PEN SC SCH ×2 (07:56→12:06)
[2017-10-04] MEDS ORDERED: METOPROLOL TARTRATE 25 MG TAB PO SCH (09:00)
[2017-10-04] MEDS ORDERED: METOPROLOL SUCC 25MG EXT REL TAB PO SCH ×2 (09:00→14:45)
[2017-10-04] MEDS ORDERED: CLOPIDOGREL BISULFATE 75 MG TAB PO SCH ×2 (09:00→15:00)
[2017-10-04 11:27] VITALS: BP 140/97; PULSE 85; TEMP 36.9; O2SAT 96
[2017-10-04] MEDS ORDERED: TPRSR25 PO (13:54)
[2017-10-04] MEDS ORDERED: INSDGIPEN SC (13:54)
[2017-10-04] MEDS ORDERED: METF500T PO (13:59)
[2017-10-04] MEDS ORDERED: NON-FORMULARY MEDICATION SCH (14:15)
[2017-10-04] MEDS ORDERED: ATORVASTATIN 40 MG TAB PO SCH (15:00)
[2017-10-04] MEDS ORDERED: METFORMIN HCL 500 MG TAB PO SCH (15:00)
[2017-10-04] MEDS ORDERED: ASPIRIN 81 MG ECTAB PO SCH (15:00)
[2017-10-04] MEDS ORDERED: LISINOPRIL 10 MG TAB PO SCH (15:00)
[2017-10-04 15:10] VITALS: BP 141/90; PULSE 91; TEMP 36.7; O2SAT 96
--- NOTE | 2017-10-04 15:23 | Cardiology Follow-Up ---
Subjective General Date of Service: Oct 04, 2017. Pt evaluation today including: conversation w/ patient, physical exam, chart review, lab review, review of studies, review of inpatient medication list History of Present Illness The patient is a 57 year old male seen in follow-up. Blood pressure improved. Toprol-XL titrated to 75 mg daily. Tolerating other cardiovascular medications including dual antiplatelet therapy and high-dose statin. Patient feeling well from a cardiovascular standpoint. Denies chest pain or shortness of breath. Patient offers no complaints at this time. Allergies Coded Allergies: No Known Allergies (Unverified , 10/01/17) Social History Smoking Status: Never Smoker Hx Alcohol Use - Type And Amou: No Hx Substance Use - Type And Am: No Problem List Medical Problems: (1) Elevated troponin Status: Acute (2) Hypertensive urgency Status: Acute Review of Systems Respiratory: No cough, No sputum, No wheezing, No shortness of breath, No dyspnea on exertion, No dyspnea at rest Cardiac: No chest pain, No orthopnea, No PND, No edema, No claudication Physical Exam Vital Signs Last Vital Signs Documentation Date Time Temp Pulse Resp B/P (MAP) Pulse Ox O2 Delivery O2 Flow Rate FiO2 10/04/17 12:00 Room Air 10/04/17 11:27 36.9 85 20 140/97 (111) 96 10/02/17 17:00 4.0 Physical Exam Constitutional: General Apperance: overweight Level of Distress: NAD Ambulation: ambulating normally Head: normocephalic, atraumatic ENMT: normal ENT inspection Lungs: Respiratory effort: no dyspnea Auscultation: breath sounds normal, no wheezing, no rales/crackles, no rhonchi Cardiovascular: Heart Auscultation: RRR, normal S1, normal S2, no murmurs, no rubs, no gallops Peripheral Pulses: Radial Pulse: normal on the right Femoral Pulse: normal on the right Musculoskeletal: normal strength (5/5 throughout) Extremities: no cyanosis, no edema, no clubbing, no ulcers, pertinent finding ( Mild right anterior wrist ecchymosis.) Neurologic: Gait & Station: pertinent finding (No focal motor deficit) Cranial Nerves: grossly intact Assessment and Plan Assessment and Plan Final impression: 1. 57-year-old male presents with elevated troponin suggestive of recent NSTEMI with echocardiographic evidence of small posterior / inferior infarct. Cardiac catheterization revealed multivessel CAD with 70% LAD (significant by FFR), 80% proximal RPDA stenosis, and 70% left circumflex stenosis (not significant by FFR). He received a drug-eluting stent to the mid LAD as well as a drug-eluting stent to the RPDA 10/02/17. No complications. 2. HTN - improved 3. DM-2 4. Dyslipidemia Plan/Recommendations: Continue dual antiplatelet therapy for a minimum of 1 year post drug-eluting stent implantation. Other cardiovascular medications including Toprol-XL, lisinopril, and atorvastatin will be continued as previously ordered. Patient is scheduled for outpatient cardiology follow-up next week. No further inpatient cardiology testing or intervention at this time. I will sign off. Please call with questions. Laboratory Results Last 24 Hours Test 10/03/17 16:05 10/03/17 20:10 10/04/17 05:34 10/04/17 06:33 Bedside Glucose 141 mg/dl 159 mg/dl 182 mg/dl White Blood Count 4.30 K/uL Red Blood Count 5.30 M/uL Hemoglobin 15.1 g/dL Hematocrit 42.8 % Mean Corpuscular Volume 80.8 fL Mean Corpuscular Hemoglobin 28.5 pg Mean Corpuscular Hemoglobin Concent 35.3 g/dl RDW Standard Deviation 38.5 fL RDW Coefficient of Variation 13.1 % Platelet Count 218 K/uL Mean Platelet Volume 9.1 fL Sodium Level 137 mmol/L Potassium Level 4.0 mmol/L Chloride Level 103 mmol/L Carbon Dioxide Level 27 mmol/L Anion Gap 7.0 mmol/L Blood Urea Nitrogen 15 mg/dl Creatinine 1.04 mg/dl Est Creatinine Clear Calc Drug Dose 98.1 ml/min Estimated GFR () 93.2 Estimated GFR (Non- 80.5 BUN/Creatinine Ratio 14.1 Random Glucose 170 mg/dl Calcium Level 9.2 mg/dl Chemistry Specimen Hemolysis Test 10/04/17 11:26 Bedside Glucose 176 mg/dl
[2017-10-04 15:37] VITALS: BP 140/97; PULSE 85; TEMP 36.9; O2SAT 96
--- NOTE | 2017-10-04 17:30 | Cardiac Catheterization ---
Procedure Note Procedure Date Oct 04, 2017. Pre-Procedure Diagnosis Non STEMI AUC Score 8 Post-Procedure Diagnosis Severe CAD Procedure(s) Performed Coronary Angiography, Left Heart Cath Economist Research Assistant Dr. 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 Start 1231. End 1308. 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 ACC Data Cardiac Status Clinical evaluation leading to the procedure CAD Presntation: No Sxs, no angina Anginal Classification: No symptoms Heart Failure: No Cardiogenic Shock w/in 24Hrs: No Cardiac Arrest w/in 24Hrs: No Imaging studies past 6 months: Yes Stress studies past 6 months: No Coronary Anatomy Dominant: Right LAD (% Stenosis): Ostial (20%), Proximal, Mid (30% early mid, 70% late mid), Distal (10%) D1 (% Stenosis): Proximal (20%) D2 (% Stenosis): Normal Circumflex (% Stenosis): Proximal (60-70%, hazy appearance) OM1 (% Stenosis): Normal OM2 (% Stenosis): Normal RCA (% Stenosis): Proximal (20%) R PDA (% Stenosis): Proximal (80%), Mid (10%), Distal (10%) R PL1 (% Stenosis): Normal R PL2 (% Stenosis): Normal Ramus (% Stenosis): Normal Diagnostic Status: Elective Closure Device Percutaneous Entry Location: Radial Closure Device: Radial Band Intraprocedure Events Significant Dissection: No Perforation: No
[2017-10-05] MEDS ORDERED: METFORMIN HCL 500 MG TAB PO SCH (09:00)
--- NOTE | 2017-10-13 21:39 | Discharge Summary ---
Discharge Summary Date of Service October 13, 2017. Discharge Summary Admission Date: Oct 01, 2017 at 14:02 Discharge Date: Oct 03, 2017 Discharge Disposition: Home Principal Diagnosis: NSTEMI, DM, HTN urgency, Hyperlipidemia Consultations: Cardiology Medication Reconciliation New Medications: Metformin Hcl (Glucophage) 500 Mg Tab 1 TAB PO UD, #120 TAB 1 Refill Take 500mg daily x 3 days, then 500mg twice a day x 3 days, then 1000mg in AM and 500mg in PM x 3 days, then 1000mg twice a day Aspirin (Aspirin EC Low Dose) 81 Mg Ectab 81 MG PO QAM, #30 TABS Atorvastatin (Lipitor) 40 Mg Tab 80 MG PO HS, #30 TAB Clopidogrel Bisulfate (Clopidogrel) 75 Mg Tab 75 MG PO QAM, #30 TAB Insulin Glargine (Lantus Solostar) 100 Unit/Ml Inj 18 UNITS SC BID, #1 PEN 1 Refill Lisinopril (Zestril) 10 Mg Tab 10 MG PO QAM, #30 TAB Metoprolol Succinate (Metoprolol Succinate ER) 25 Mg Tabcr 75 MG PO QAM for 30 Days, #90 TABS Admission Information HPI (per Admitting provider): Pt is 57 y/o M presented to ER for HTN. Pt has not seen physician for years and therefore unsure of any underlying medical problems. He does report that he has checked his BP at pharmacy a couple of times in past and was 140's/90's. Today pt was seen at [facility] for initial evaluation and for hx of N/V/D. He was sent to ER for HTN and possible EKG changes. Pt denies any current CP or SOB. He states 2 weeks ago he ate a Whopper burger and after started with mid abdominal pain, nausea, vomiting and diarrhea which resolved after 2 days. He reports a similar occurrence 2 years ago after eating all you can eat appetizers and at that time symptoms lasted 4 days. Hx heartburn 5-7 times a week for past 4 years. 2 weeks ago took TUMS with moderate relief, otherwise no other medical treatment or evaluation. 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 Reports FRANK that occurs once a month described as sharp sudden "explosion type" pain that lasts for approx 5 minutes and self resolves. It is not associated with vision changes, dizziness, paresthesias, lacrimation, N/V. Pt states increased nocturnal urination x 1 year. He reports approx 20 pound weight loss over past 6 months. He states has stopped drinking soda and has focused on controlled portions. Uses Ibuprofen 2 tabs once a day approx once a month. Drinks 1 cup coffee daily, 32 oz iced tea twice weekly. Denies fever/chills, diaphoresis, hematemesis, melena, hematochezia, dysuria, hematuria, urinary retention, dizziness, syncope, vision changes, neck pain, CP, SOB, orthopnea, PND, palpitations, cough, sore throat, choking, otalgia, rhinorrhea, paresthesias, weakness, extremity weakness, extremity edema, rashes. FH OR - age 75. FH HTN, HLD, DM Physical Exam (per Admitting): General Appearance: WD/WN, no apparent distress Head: normocephalic, atraumatic Eyes: normal inspection, PERRL, EOMI, sclerae normal ENT: hearing grossly normal, pharynx normal, + pertinent finding Neck: supple, no JVD, trachea midline Respiratory/Chest: lungs clear, normal breath sounds, no respiratory distress Cardiovascular: regular rate, rhythm, normal peripheral pulses Abdomen/GI: normal bowel sounds, non tender, soft Extremities/Musculoskelatal: no calf tenderness, normal capillary refill, no pedal edema, non-tender Neurologic/Psych: alert, normal mood/affect, oriented x 3 Skin: normal color, warm/dry Hospital Course CAD/Recent NSTEMI: -had a slight troponin elevation on admission which appeared to trend down -patient underwent a cath, found to have severe CAD, had PCI with FRANCISCO J to the mid to distal LAD, and right PDA -was initially on ticagrelor but due to financial constraints this was changed to clopidogrel today by Cardio -continued on ASA, statin, metoprolol and lisinopril HTN URGENCY: -was given labetalol 10mg IV in ER with continued HTN -labetolol IV prn HTN was added, was given a dose today due to elevated BP again -Started lisinopril PO and lopressor on admission; further titration as needed for BP control; increased lisinopril and metoprolol -monitor ELEVATED TROPONIN: -trending down since admission Troponin of 0.076 -EKG did not show acute ST or T wave changes -No typical symptoms of CP, SOB, dizziness, FRANK, diaphoresis -Risk factors:HTN, probable underlying DM, obesity, FHx of CAD -not events noted on tele monitor -Cardiology consulted, appreciate recs, planning for follow up via [facility] in about 1-2 weeks -TTE report: * -- Conclusions -- * Ejection Fraction = 55-60%. * Mild hypokinesis of the basal and mid inferior wall and basal posterior wall. * Otherwise, normal wall motion. * There is mild concentric left ventricular hypertrophy. * Grade I diastolic dysfunction, (abnormal relaxation pattern). * No significant valvular pathology. -lipid panel: total 254, HDL 23 -tox screen neg -TSH normal -continued on ASA, metoprolol -Nitro prn CP and repeat EKG for CP HYPERGLYCEMIA: NEWLY DIAGNOSED DM -Glucose: 278 on admission -HbA1c: 12.1% -NovoLog and Lantus per protocol -Diabetes education consulted HYPERLIPIDEMIA: -started on statin last night, continued -total cholesterol 254 INDIGESTION, N/V/D, ABDOMINAL PAIN -reports frequent indigestion symptoms ~ 5-7 days a week for 4 years -also reports N/V/D and mid abdominal pain after eating fatty/greasy foods, last occurrence 2 weeks ago -RUQ/gallbladder US: Normal gallbladder. No gallstones. Hepatic steatosis. The pancreas was obscured by overlying bowel gas. -Maalox prn indigestion -pt may need PPI trial and will definitely need GI follow up as an outpatient for screening colonoscopy and further evaluation of above symptoms PHYSICAL EXAM: GENERAL: Patient is in no acute distress. HEENT: No acute trauma, normocephalic, mucous membranes moist, no nasal congestion, no scleral icterus. NECK: No stridor, trachea is midline. LUNGS: CTA bilaterally, no wheeze, no rhonchi, breath sounds equal. HEART: Without murmurs gallops or rubs, regular rate and rhythm. ABDOMEN: Soft, nontender, bowel sounds positive EXTREMITIES: No cyanosis; B/L LE trace edema, full range of motion of all the joints without pain or difficulty, no signs for acute trauma. NEUROLOGIC: Oriented x 3, no acute motor or sensory deficits, no focal weakness. SKIN: No rash, no jaundice, no diaphoresis. Total time spent on discharge = 39 This includes examination of the patient, discharge planning, medication reconciliation, and communication with other providers. Discharge Instructions See patient instructions
== END 2017-10-04 16:36 | disposition home or self-care (01) | DRG 247 ==
LOC: EDBD 11:53 → C.EDA 11:56 → C.2E 14:02 → ENRESERV 14:07
PROVIDERS: ADMIT Hospitalist; ATTEND Internal Medicine
PROC: 027135Z Dilation of Coronary Artery, Two Arteries with Two Drug-eluting Intraluminal Devices, Percutaneous Approach (ICD-10-PCS; principal; 2017-10-02 12:09)
PROC: 4A033BC Measurement of Arterial Pressure, Coronary, Percutaneous Approach (ICD-10-PCS; principal; 2017-10-02 12:09)
PROC: B2111ZZ Fluoroscopy of Multiple Coronary Arteries using Low Osmolar Contrast (ICD-10-PCS; 2017-10-04)
PROC: 4A023N7 Measurement of Cardiac Sampling and Pressure, Left Heart, Percutaneous Approach (ICD-10-PCS; 2017-10-04)
DX: I21.4 Non-ST elevation (NSTEMI) myocardial infarction (principal); I25.10 Atherosclerotic heart disease of native coronary artery without angina pectoris; I16.0 Hypertensive urgency; R79.89 Other specified abnormal findings of blood chemistry; Z82.49 Family history of ischemic heart disease and other diseases of the circulatory system; E11.65 Type 2 diabetes mellitus with hyperglycemia; E66.9 Obesity, unspecified; Z83.3 Family history of diabetes mellitus; E78.5 Hyperlipidemia, unspecified; K30 Functional dyspepsia; Z68.31 Body mass index [BMI] 31.0-31.9, adult